=== PATIENT | female | born 1990 | race African-American/Black ===

== ENCOUNTER 2023-02-19 14:16 | Emergency (ER) | payer OTHER, SELFPAY ==
--- NOTE | ~2023-02-19 | XR_ITS ---
EXAMINATION: [id number] Exam Date/Time: 02/19/2023 15:19 STAINED GLASS GLAZIER HELPER HISTORY: coughing fit, pop in ribs Comparison: None. RESULT: Lines, tubes, and devices: None. Lungs and pleura: Slightly low volumes, with crowding. Streaky bibasilar atelectasis. Cardiomediastinal silhouette: Normal. Other: Mildly displaced left posterolateral ninth rib fracture. No acute upper abdominal finding. IMPRESSION: No acute cardiopulmonary process. Mildly displaced left posterolateral ninth rib fracture. Reviewed, dictated and finalized at location K. NED GLASS GLAZIER HELPER
[2023-02-19 14:21] VITALS: BP 131/75; PULSE 104; RESP 16; TEMP 36.3; O2SAT 100
[2023-02-19 14:33] VITALS: O2SAT 100
--- NOTE | 2023-02-19 14:38 | ED.GENADULT ---
HPI - General Adult General Chief complaint: Upper Respiratory Infection Stated complaint: pain with breathing, 31 weeks Time Seen by Provider: 02/19/23 14:26 Source: patient Mode of arrival: ambulatory Limitations: no limitations History of Present Illness HPI narrative: This is a 32-year-old female approximately 31 weeks who presents to the ED with chief complaint of left sided left flank pain began just prior to arrival. Patient reports she has had a cough and felt a pop today while coughing. Related Data Allergies Allergy/AdvReac Type Severity Reaction Status Date / Time No Known Allergies Allergy Verified 02/19/23 14:21 Exam Narrative: GENERAL: Well-appearing, well-nourished, and in no acute distress. HEAD: Normocephalic, atraumatic. EYES: PERRLA and EOMI. ENT: Nares clear, no rhinorrhea or epistaxis. Mucous membranes moist. Oropharynx without tonsillar hypertrophy exudate or other lesions. NECK: Supple. No adenopathy or masses. CHEST: No respiratory distress. Clear to auscultation. Breath sounds equal bilaterally. Point tenderness to the posterolateral left ribs. HEART: Regular rate and rhythm. No murmur heard. Normal peripheral pulses. ABDOMEN: Soft, nontender, nondistended, normal active bowel sounds. MSK: Normal range of motion. No edema. SKIN: Warm, dry, no rash. NEURO: Alert and oriented x3. No focal deficits. PSYCH: Normal mood and affect. Course Vital Signs Vital signs: Vital Signs Temperature 97.4 F L 02/19/23 14:21 Pulse Rate 104 H 02/19/23 14:21 Respiratory Rate 16 02/19/23 14:21 Blood Pressure 131/75 02/19/23 14:21 Pulse Oximetry 100 02/19/23 14:21 Temperature 97.4 F L 02/19/23 14:21 Pulse Rate 104 H 02/19/23 14:21 Respiratory Rate 16 02/19/23 14:21 Blood Pressure 131/75 02/19/23 14:21 Pulse Oximetry 100 02/19/23 14:33 Oxygen Delivery Room Air 02/19/23 14:33 Medical Decision Making MDM Narrative Medical decision making narrative: This is a 32-year-old female who is approximately 31 weeks coming in for left rib pain. She has had recent significant cough and felt a pop earlier. Vitals are normal. Exam reveals point tenderness to the posterior lateral ribs. On x-ray she has a mildly displaced 9th rib fracture at that location. Respiratory exam remains intact. She was given incentive spirometer. Tylenol given here with moderate relief. Instructed to follow-up with OB regarding cough medications. Pt will be discharged in stable condition. Return precautions given and supportive measures discussed. Pt is understanding and agreeable with plan for discharge and follow-up with PCP. Vital Signs Vital Signs: Vital Signs Temperature 97.4 F L 02/19/23 14:21 Pulse Rate 104 H 02/19/23 14:21 Respiratory Rate 16 02/19/23 14:21 Blood Pressure 131/75 02/19/23 14:21 Pulse Oximetry 100 02/19/23 14:21 Temperature 97.4 F L 02/19/23 14:21 Pulse Rate 104 H 02/19/23 14:21 Respiratory Rate 16 02/19/23 14:21 Blood Pressure 131/75 02/19/23 14:21 Pulse Oximetry 100 02/19/23 14:33 Oxygen Delivery Room Air 02/19/23 14:33 Discharge Plan Discharge Clinical Impression: Closed rib fracture Patient Disposition: Home, Self-Care Condition: Stable Instructions: Antibiotic Form, Rib Fracture (ED) Additional Instructions: Your exam and imaging today show evidence of 9th rib fracture. Please follow-up closely with your OB doctor. You need to ask them regarding cough medications in as the data is not clear on what is safe. Continue to take Tylenol every 4-6 hours as needed for pain. A maximum of 4000 mg of Tylenol in 1 day. If you have any new or worsening symptoms please return to the ER for further evaluation. Follow-up/Referrals: PHYSICIAN,LETTERER [Primary Care Provider] - Time of Disposition: 16:03
[2023-02-19] MEDS: ACETAMINOPHEN 500 MG TABLET 1000 MG PO (15:02)
== END 2023-02-19 16:17 | disposition home or self-care (01) ==
PROVIDERS: Emergency Provider Physician Assistant
DX: O9A.213 Injury, poisoning and certain other consequences of external causes complicating pregnancy, third trimester (principal); S22.32XA Fracture of one rib, left side, initial encounter for closed fracture; X50.9XXA Other and unspecified overexertion or strenuous movements or postures, initial encounter; Z3A.31 31 weeks gestation of pregnancy
CPT/HCPCS: 71101; 99283; A9270

== ENCOUNTER 2025-03-14 15:24 | Outpatient (RCR) | payer OTHER, SELFPAY ==
[2025-02-21 15:45] VITALS: BP 119/72; PULSE 98
[2025-02-28 16:33] VITALS: BP 133/75; PULSE 96
[2025-03-07 17:21] VITALS: BP 122/73; PULSE 98
--- NOTE | ~2025-03-14 | US_ITS ---
EXAM(S): US OB BPP without non-stress HISTORY: BPP, history of uterine rupture COMPARISON: None. FINDINGS: Number: Single. Heart rate: 142 bpm. presentation: cephalic. Amniotic fluid index: 9.6 cm. Placenta: Posterior. BPP: Breathing Movements: 0 Movements: 2 Tone: 2 AFV: 2 BPP: 6/8 IMPRESSION: Single live intrauterine gestation with BPP of 6/ 8, as described. Reviewed, dictated and finalized at location A. TMENT SPECIALIST
--- NOTE | ~2025-03-14 | US_ITS ---
EXAMINATION: US OB limited w BPP, 03/07/2025 17:10 OB GYN HISTORY: BPP Comparison: None Technique: Null-scale and color Doppler images were obtained. Findings: Single live intrauterine fetus in longitudinal lie and vertex presentation identified, heart rate 134 The placenta is located posteriorly and appears grossly unremarkable Amniotic fluid is subjectively normal, GEO 11.5 BPP 11/01 IMPRESSION: Single live intrauterine detailed above Reviewed, dictated and finalized at location P. GYN
--- NOTE | ~2025-03-14 | US_ITS ---
EXAMINATION: US OB BPP wo non-stress, 02/28/2025 16:00 BOOT LINER MAKER HISTORY: hx of Uterine rupture with past Comparison: None Technique: Null-scale and color Doppler images were obtained. Findings: Single live intrauterine in longitudinal lie and vertex presentation, heart rate 143 Placenta is located maternal right and posteriorly Amniotic fluid subjectively normal, DVP 6.55 BPP 8 IMPRESSION: Single live intrauterine detailed above Reviewed, dictated and finalized at location P. LINER MAKER
--- NOTE | ~2025-03-14 | US_ITS ---
US OB BPP wo non-stress INDICATION: History of uterine rupture . COMPARISON: None. TECHNIQUE: Transabdominal limited obstetric sonogram and biophysical profile were performed. TRANSABDOMINAL LIMITED OBSTETRIC SONOGRAM: There is a single intrauterine with a vertex longitudinal lie, posteriorly placenta, and GEO of 7.1 cm. heart motion at a rate of 133 bpm is documented. BPP: The biophysical profile score, assessing breathing movement, gross body movement, tone and qualitative amniotic fluid volume is 6/8. No breathing was observed. IMPRESSION: Single intrauterine in vertex presentation with heart tones measuring 633 bpm. Biophysical profile score 6/8. Reviewed, dictated and finalized at location S. L ARCHITECT IMPRESSION: Single intrauterine in vertex presentation with heart tones me asuring 633 bpm. Biophysical profile score 6/8.
[2025-03-14 15:58] VITALS: BP 129/77; PULSE 106
== END 2025-03-21 17:44 | disposition other institution (70) ==
LOC: ANHOBOP 15:24
PROVIDERS: Visit Provider Obstetrics & Gynecology
DX: O09.293 Supervision of pregnancy with other poor reproductive or obstetric history, third trimester (principal); Z3A.32 32 weeks gestation of pregnancy
CPT/HCPCS: 59025; 76815; 76819

== ENCOUNTER 2025-03-17 16:12 | Outpatient (CLI) | payer OTHER, SELFPAY ==
--- OUTSIDE RECORDS SUMMARY | 2025-03-17 11:15 | XMS_ITS | Encounter Summary ---
Author Organization [facility] Address [address] [place] [address] Care Team Providers Care Research And Development Chemist Name Role Phone Eliud Cox DO Primary Care Provider [phone] Reason for Referral * (Routine) - Open Specialty Diagnoses / Procedures Referred By Contac t Referred To Contact Diagnoses Previous section complicating (HCC) Hx of obstetrical complication Seventh (HCC) Obesity affecting , antepartum, unspecified obesity type (HCC) Encounter for follow-up ultrasound of anatomy (HCC) Encounter for ultrasound to assess growth (HCC) Previous child born with ventricular septal defect, currently , single or unspecified fetus (HCC) Procedures Sonogram - Complete Jamaal Oakes MD [address] [facility] [address] [place] [address] Phone: tel: fax: Referral ID Status Reason Start Date Expiration Date Visits Re quested Visits Authorized [id number] Open 12/18/2024 12/18/2025 4 4 RED MACHINE OPERATOR Reason for Visit * Reason Comments Ultrasound * (Routine) - Open Specialty Diagnoses / Procedures Referred By Contac t Referred To Contact Diagnoses Previous section complicating (HCC) Hx of obstetrical complication Seventh (HCC) Obesity affecting , antepartum, unspecified obesity type (HCC) Encounter for follow-up ultrasound of anatomy (HCC) Encounter for ultrasound to assess growth (HCC) Previous child born with ventricular septal defect, currently , single or unspecified fetus (HCC) Procedures Sonogram - Complete Jamaal Oakes MD [address] [facility] [address] [place] [address] Phone: tel: fax: Referral ID Status Reason Start Date Expiration Date Visits Re quested Visits Authorized [id number] Open 12/18/2024 12/18/2025 4 4 Encounter Details Date Type Department Care Team (Late st Contact Info) Description 03/17/2025 11:15 AM ARMORED MACHINE OPERATOR Hospital Encounter [facility] Maternal & Care [address] [place] [address] Sophia Castillo MD [address] [address] Social History Tobacco Use Types Packs/Day Years Used Date Smoking Tobacco: Never Smokeless Tobacco: Never Alcohol Use Standard Drinks/Week Comments No 0 (1 standard drink = 0.6 oz pur e alcohol) [place] Depression Scale Answer Date Recorded Last EPDS Total Score Not on file 01/06/2021 The thought of harming myself has occurred to me . Never 01/06/2021 Estimated Date of Delivery Comme nts Yes 04/12/2025 Based on last me nstrual period of 07/06/2024 Sex and Gender Information Value Date Recorded Sex Assigned at Not on file Legal Sex Female 4:47 AM ARMORED MACHINE OPERATOR Gender Identity Not on file Sexual Orientation Not on file documented as of this encounter Functional Status * Is person deaf or have serious hearing difficulty? Answer Date of Assessment Author No 11/25/2020 6:19 AM Ellie Rosenberg RN * Is person blind or have serious difficulty seeing? Answer Date of Assessment Author No 11/25/2020 6:19 AM Ellie Rosenberg RN * Does person have serious difficulty walking/climbing stairs? Answer Date of Assessment Author No 11/25/2020 6:19 AM Ellie Rosenberg RN * Does person have difficulty dressing/bathing? Answer Date of Assessment Author No 11/25/2020 6:19 AM Ellie Rosenberg RN * Does person have difficulty doing errands alone? Answer Date of Assessment Author No 11/25/2020 6:19 AM Ellie Rosenberg RN documented as of this encounter Mental Status * Does person have difficulty concentrating/remembering/making decisions? Answer Entry Date Author No 11/25/2020 6:19 AM Ellie Rosenberg RN documented in this encounter Plan of Treatment Not on file documented as of this encounter Procedures Procedure Name Priority Date/Time Associated Diagnosis Comments SONOGRAM - COMPLETE Routine 03/17/2025 11:49 AM ARMORED MACHINE OPERATOR Previous section complicating (HCC) Hx of obstetrical complication: Uterine rupture during ALPHONSO, 2021 Seventh (HCC) Obesity affecting , antepartum, unspecified obesity type (HCC) Encounter for follow-up ultrasound of anatomy ([facility]) Encounter for ultrasound to assess growth ([facility]) Previous child born with ventricular septal defect, currently , single or unspecified fetus ([facility]) documented in this encounter Results * Sonogram - Complete (03/17/2025 11:49 AM ARMORED MACHINE OPERATOR) Linked Results Indication ======== Obesity complicating , Class 3 - BMI of 40.0 or greater History of uterine rupture (avulsion) Family history of congenital heart defect History ====== OB History 7. Para 6 [id number] 1. live 2012. Gest. age 40 w + 2 d. Weight 4,120 g. Sex of child: male. Details: Vaginal delivery 2. live 2015. Gest. age 39 w + 1 d. Weight 3,680 g. Sex of child: female. Details: Vaginal delivery 3. live 2019. Gest. age 39 w + 0 d. Weight 3,590 g. Sex of child: male. Details: delivery 4. live 2020. Gest. age 39 w + 3 d. Weight 3,380 g. Sex of child: male. Details: delivery 5. live 2021. Gest. age 39 w + 0 d. Weight 2,278 g. Sex of child: male. Details: delivery; Uterine Abruption after attempt 6. live 2022. Gest. age 36 w + 0 d. Weight 2,551 g. Sex of child: male. Details: delivery Lab Tests Test Date Result Genetic screening Declined, Not performed Maternal Assessment Physical Exam Height 160 cm, 5 ft 3 in. Weight 112 kg, 248 lb. Initial weight 108 kg, 238 lb. BMI 43.93 kg/m . Initial BMI 42.16 kg/m . Weight gain 5 kg, 10 lb Method ====== Transabdominal ultrasound. View: limited secondary to challenging acoustic properties ========= Raphael . Number of fetuses: 1 Dating ====== Date Details Gest. age CAROLYN LMP 07/06/2024 36 w + 2 d 04/12/2025 Stated CAROLYN 36 w + 2 d 04/12/2025 U/S 03/17/2025 based upon AC, BPD, Femur, HC 36 w + 3 d 04/11/2025 Assigned dating based on the LMP, selected on 09/06/2024 36 w + 2 d 04/12/2025 General Evaluation Cardiac activity present. FHR 153 bpm. Presentation: cephalic Placenta: Placental site: posterior Amniotic fluid: Amount of AF: normal. GEO 11.4 cm. Q1 4.3 cm, Q2 2.0 cm, Q3 2.6 cm, Q4 2.6 cm Biometry BPD 87.4 mm 35w 2d 32% Hadlock HC 324.2 mm 36w 5d 30% Hadlock AC 338.0 mm 37w 5d 91% Hadlock Femur 70.3 mm 36w 0d 40% Hadlock Humerus 63.8 mm 37w 0d 85% Jono HC / AC 0.96 Weight Calculation: EFW 3,086 g 71% Hadlock EFW (lb,oz) 6 lb 13 oz EFW by Hadlock (HC-AC-FL) Growth Overview Exam date GA BPD (mm) HC (mm) AC (mm) FL (mm) HL (mm) EFW (g) 11/19/2024 19w 3d 44.4 50% 174.4 68% 143.3 53% 31.4 55% 30.8 79% 309 61% 12/18/2024 23w 4d 57.3 43% 221.3 57% 201.4 78% 44.4 72% 40.9 77% 713 85% 01/17/2025 27w 6d 68.5 28% 262.8 43% 246.2 73% 52.1 32% 50.2 85% 1219 58% 02/14/2025 31w 6d 80.3 53% 302.4 60% 300.8 95% 62.3 48% 64.4 >99% 2170 83% 03/17/2025 36w 2d 87.4 32% 324.2 30% 338 91% 70.3 40% 63.8 85% 3086 71% Anatomy The following structures appear normal: Abdomen Stomach. Kidneys. Bladder. Impression ========= 1) Raphael gestation, 36w2d 2) The accuracy of weight estimates is highly limited at / near term and at a higher BMI but today's AC measurement may be evidence of increased adiposity 3) The amniotic fluid volume is within normal limits 4) Imaging of the lower uterine segment myometrium was suboptimal (secondary to size and head position) Comment ======== ultrasound alone cannot detect all structural, genetic, or functional , placental, or maternal abnormalities Follow-up ======== Close maternal movement monitoring while awaiting admission for delivery (repeat CD is scheduled tomorrow) Coding ====== Diagnoses Z87.828: History of uterine rupture (avulsion) O99.213, E66.813: Obesity complicating , Class 3 - BMI of 40.0 or greater O34.219: Maternal care for unspecified type scar from previous delivery Z36.89: Encounter for other specified screening Procedures 79992: US Preg Uterus Follow Up [facility] PACS Anatomical Region Laterality Modality Other 03/17/2025 11:4 9 AM ARMORED MACHINE OPERATOR us Jamaal Oakes MD [facility] ORDERABLES Edited Result - Final documented in this encounter Visit Diagnoses Diagnosis Previous section complicating (HCC)- Primary Previous delivery, unspecified as to episode of care or not applicable Hx of obstetrical complication: Uterine rupture during ALPHONSO, 2021 Personal history of other genital system and obstetric disorders Obesity affecting , antepartum, unspecified obesity type (HCC) Encounter for ultrasound to assess growth (HCC) Previous child born with ventricular septal defect, currently , single or unspecified fetus (HCC) Supervision of high risk in third trimester (HCC) Unspecified high-risk Seventh (HCC) state, incidental Encounter for follow-up ultrasound of anatomy (HCC) documented in this encounter Care Teams Research And Development Chemist Relationship Specialty Start Date End Date Eliud Cox DO [address] [place] [address] PCP - General 06/05/09 documented as of this encounter
[2025-03-17 16:45] LABS: Hematocrit 32.1 % (37.0-47.0); Hemoglobin 10.7 g/dL (12.0-15.0); Mean Corpuscular HGB Conc 33.3 g/dl (32-36); Mean Corpuscular Hemoglobin 30.4 pg (26-34); Mean Corpuscular Volume 91.2 fl (80-100); Platelet Count Result 236 k/mm3 (150-375); Red Blood Count 3.52 M/mm3 (4.2-5.4); White Blood Count 9.8 K/mm3 (4.5-10.0)
--- OUTSIDE RECORDS SUMMARY | 2025-03-17 17:13 | XMS_ITS | Clinical Summary ---
Author Organization [facility] Address [address] [place] [address] Care Team Providers Care Swimming Coach Or Instructor Name Role Phone Eliud Cox Primary Care Provider [phone] Source Comments [facility],non-owned Affiliates and Associated Physician Practices is amultiple site organization consisting of ambulatory clinics and hospital sitesin [place], [place], [place] and [place]. This disclosure is being madepursuant to the Care Everywhere program and may not contain all information available regarding this patient. Last updated 17.[facility] Allergies No known active allergies Medications * Be aware that medications may not be up to date on this document. Alwaysverify current medications with the patient. [id number]-Yza-[id number] -FA ( VITAMINS PO) Active ferrous sulfate 325 (65 FE) MG tabletIndicatio ns:Iron Deficiency Anemia Take 1 (one) tablet by mouth once daily Reasons: Anemia From Inadequate Iron in the Body 90 tablet 1 Active Additional Information Patient not taking.Reported on 12/09/2020 escitalopram (LEXAPRO) 10 MG tabletIndicatio ns:Depression affecting in second trimester, antepartum (HCC) Take 1 (one) tablet by mouth once daily 90 tablet 4 1 Active Additional Information Patient taking differently: 20 mgOral DAILY,Indications: Major Depressive Disorder, Social Anxiety Disorder, Bipolar, Reason: Provider adjusted, Informant: Patient, Reported on 12/18/2024 oxyCODONE-aceta minophen (PERCOCET) 5-325 MG tablet Take 1 (one) tablet by mouth every 4 hours as needed 20 tablet 1 Active Additional Information Patient not taking.Reported on 01/06/2021 ibuprofen (MOTRIN) 600 MG tablet Take 1 (one) tablet by mouth every 6 hours 40 tablet 1 Active Additional Information Patient not taking.Reported on 01/06/2021 docusate sodium (COLACE) 100 MG capsule Take 1 (one) capsule by mouth 2 times daily 60 capsule 1 Active Additional Information Patient not taking.Reported on 12/09/2020 buPROPion XL 24hr (Wellbutrin-XL) 300 MG tabletIndicatio ns:Bipolar Take 1 (one) tablet by mouth every morning Reasons: Bipolar Active Active Problems Problem Noted Date Diagnosed Date Previous section complicating 11/19/2024 Hx of obstetrical complicati on: Uterine rupture during ALPHONSO, 202111/19/2024 Hx of section 05/19/2020 Obesity affecting , antepartum 05/19/19 21 Deliberate self-cutting 09/30/2019 Depression affecting 04/05/2019 ASCUS of cervix with negative high risk HPV 02/25 Overview (03/22/2019): Repeat pap 2019 BMI 40.0-44.9, adult 03/13/2019 Depression with anxiety 07/28/2017 Obesity 11/27/2013 ADHD (attention deficit hyperactivity disorder) 06/05/2009 Estimated Date of Delivery Comme nts Yes 04/12/2025 Based on last me nstrual period of 07/06/2024 Resolved Problems Problem Noted Date Diagnosed Date Resolved Date Vaginal bleeding 08/30/2019 11/19/2024 screening for feta l growth retardation using ultrasonics 05/28/2015 08/24/2017 Overview (12/25/2021): IMO 2021 Update Velamentous insertion of umbilical cord 03/06/2015 07/15/2015 Overview (04/09/2015): risk for abnormal heart rate patterns, growth restriction and increased risk for delivery Plan repeat growth scan at 32 weeks Encounter for nuchal translucency testing 01/12/2015 08/24/2017 Encounter for supervision of other normal 01/12/2015 08/24/2017 Overview (02/01/2015): Chlamydia infection affectin g , antepartum 12/02/2014 08/24/2017 UTI (urinary tract infection ) in , antepartum 12/02/2014 08/24/2017 Supervision of normal 10/31/2012 09/18/2014 ASCUS (atypical squamous ted ls of undetermined significance) on Pap smear 09/11/2012 08/24/2017 Vaginal bleeding during 11/19/2024 Encounters Date Type Department Care Team Description 03/17/2025 11:15 AM DIESEL ENGINEER Hospital Encounter [facility] [address] [place] [phone] Sophia Castillo MD 02/17/2025 Telephone [facility] [address] [place] [phone] Debbie Ramos RN Question (Called and spoke with Deysi with Primary OB provider. Patient needs to start weekly BPP + NST's due to history of uterine rupture. [facility] has no weekly appointments. Would primary OB office be able to accommodate this for patient?) 02/14/2025 1:37 PM DIESEL ENGINEER - 02/14/2025 11:59 PM DIESEL ENGINEER Hospital Encounter [facility] [address] [place] [phone] Jean Marie Galarza MD Discharge Disposition: Home or Self Care 01/17/2025 3:15 PM CDT - 01/17/2025 11:59 PM CDT Hospital Encounter [facility] [address] [place] [phone] David Beavers DO PIANO PLAYER Discharge Disposition: Home or Self Care 12/30/2024 12:30 PM CDT Hospital Encounter [address] [address] Kita Sanchez MD 12/30/2024 12:30 PM CDT Hospital Encounter [facility] [place] [address] [place] [phone] Svetlana Nickerson MD Lehmann, Gloria C, MD Discharge Disposition: Home or Self Care 12/30/2024 Results Follow-Up [facility] [address] [place] [phone] Svetlana Nickerson MD 12/27/2024 Telephone [facility] [place] [address] [place] [phone] Gabriela Gallegos Appointment 12/18/2024 12:52 PM CDT - 12/18/2024 11:59 PM CDT Hospital Encounter [facility] [address] [place] [phone] Svetlana Nickerson MD Discharge Disposition: Home or Self Care 12/18/2024 12:52 PM CDT - 12/18/2024 11:59 PM CDT Hospital Encounter [facility] [address] [place] [phone] Svetlana Nickerson MD Discharge Disposition: Home or Self Care from Last 3 Months Immunizations Immunization Administration Dates Next Due DT 07/17/2006 FLU VACCINE TRI IIV3 SPLIT P F IM (FLUVIRIN) 01/11/2013 HEP B VACCINE, ADULT 3 DOSE 03/11/2016 Human Papilloma Virus Vaccine 03/14/2007, 007,09/22/2006 INFLUENZA VACCINE, QUADR. (F LUZONE; FLULAVAL; FLUARIX; AFLURIA QUADRIVALENT; 6MO+), 0.5 ML (IIV4) 01/09/2015 TDAP (7yrs+) 09/08/2020, 0,05/01/2015,2012 Family History Medical History Relation Name Comments High Blood Pressure Maternal Grandfather High Blood Pressure Maternal Grandmother Blood Clots Mother Diabetes; unknown type Mother High Blood Pressure Mother Congenital Heart defect Other chil d Arthritis Neg Hx Bleeding Disorders Neg Hx Cancer Neg Hx Clotting Disorder Neg Hx Diabetes Neg Hx Genetic/Metabolic Disease Neg Hx Heart Disease Neg Hx Hypertension Neg Hx Kidney Disease Neg Hx Multiple Births Neg Hx Labor Neg Hx Sickle Cell Anemia Neg Hx Stroke Neg Hx Toxemia Neg Hx Twins Neg Hx Relation Name Status Comments Maternal Grandfather Maternal Grandmother Mother Other Social History Tobacco Use Types Packs/Day Years Used Date Smoking Tobacco: Never Smokeless Tobacco: Never Alcohol Use Standard Drinks/Week Comments No 0 (1 standard drink = 0.6 oz pur e alcohol) [place] Depression Scale Answer Date Recorded Last EPDS Total Score Not on file 01/06/2021 The thought of harming myself has occurred to me . Never 01/06/2021 Estimated Date of Delivery Comme nts Yes 04/12/2025 Based on last me nstrual period of 07/06/2024 Sex and Gender Information Value Date Recorded Sex Assigned at Not on file Legal Sex Female 4:47 AM DIESEL ENGINEER Gender Identity Not on file Sexual Orientation Not on file Last Filed Vital Signs Vital Sign Reading Time Taken Comments Blood Pressure 119/71 02/14/2025 3:01 PM DIESEL ENGINEER Pulse 106 02/14/2025 3:01 PM DIESEL ENGINEER Temperature 36.8 C (98.2 F) 11/27/2020 8:20 AM CDT Respiratory Rate 16 11/27/2020 4:45 AM CDT Oxygen Saturation 99% 11/27/2020 8:20 AM CDT Inhaled Oxygen Concentration - - Weight 111.6 kg (246 lb) 12/18/2024 1:39 PM CDT Height 160 cm (5' 3) 12/18/2024 1:39 PM CDT Body Mass Index 43.58 12/18/2024 1:39 PM CDT Plan of Treatment Health Maintenance Due Date Last Done Comments HEPATITIS B VACCINE (2 of 3 - 19+ 3-dose series) 04/08/2016 03/11/2016 PAP with HPV 03/13/2024 03/13/2019, 05/0 03/2014, 05/15/2013, Additional history exists DEPRESSION SCREENING 03/27/2024 COVID-19 VACCINE ( season) 2024 04/19/2021, 03/29/2021 INFLUENZA VACCINE (#1) 2024 2, 01/09/2015, 01/11/2013 OB-ONE HOUR GLUCOSE 01/04/2025 10/06/2020, 05/01/2015, 12/14/2012 OB-TDAP CURRENT 01/11/20252021, 09/08/2020, 08/26/2019, Additional history exists Respiratory Syncytial Virus (RSV) Vaccine Pt: or over 60 yrs (1 - Risk 1-dose series) 02/15/2025 OB-GROUP B STREP SCREEN 03/08/2025 11/04/19, 09/30/2019, 06/24/2015, Additional history exists DTAP/TDAP/TD VACCINES (6 - Td or Tdap) 09/08/2030 09/08/2020, 08/26/2019, 05/01/2015, Additional history exists ZOSTER VACCINE (1 of 2) 08/13/2041 HPV VACCINE Completed 03/14/2007, 10/26, 09/22/2006 HEPATITIS C SCREENING Completed 06/30/2017 HIV SCREENING Completed 11/25/2020, 02/24, 06/30/2017, Additional history exists HIB VACCINE Aged Out No longer eligi ble based on patient's age to complete this topic MENINGOCOCCAL (Group B) VACCINE SHARED DECISION-MAKING Aged Out No longer eligible based on patient's age to complete this topic MENINGOCOCCAL GROUPS A/C/Y/W VACCINE Aged Out No longer eligible based on patient's age to complete this topic PNEUMOCOCCAL VACCINE Aged Out No long er eligible based on patient's age to complete this topic Procedures Procedure Name Priority Date/Time Associated Diagnosis Comments SONOGRAM - COMPLETE Routine 03/17/2025 11:49 AM DIESEL ENGINEER Previous section complicating (HCC) Hx of obstetrical complication: Uterine rupture during ALPHONSO, 2021 Seventh (HCC) Obesity affecting , antepartum, unspecified obesity type (HCC) Encounter for follow-up ultrasound of anatomy ([facility]) Encounter for ultrasound to assess growth ([facility]) Previous child born with ventricular septal defect, currently , single or unspecified fetus (HCC) SONOGRAM - COMPLETE Routine 02/14/2025 1:51 PM DIESEL ENGINEER Previous section complicating (HCC) Hx of obstetrical complication: Uterine rupture during ALPHONSO, 2022 Seventh (HCC) Obesity affecting , antepartum, unspecified obesity type (HCC) Encounter for follow-up ultrasound of anatomy (HCC) Encounter for ultrasound to assess growth (HCC) Previous child born with ventricular septal defect, currently , single or unspecified fetus (HCC) SONOGRAM - COMPLETE Routine 01/17/2025 3:20 PM CDT Previous section complicating (HCC) Hx of obstetrical complication: Uterine rupture during ALPHONSO, 2021 Seventh (HCC) Obesity affecting , antepartum, unspecified obesity type (HCC) Encounter for follow-up ultrasound of anatomy (HCC) Encounter for ultrasound to assess growth (HCC) Previous child born with ventricular septal defect, currently , single or unspecified fetus (HCC) ECHO COMPLETE CG Routine 12/30/2024 1:08 PM CDT Previous child born with ventricular septal defect, currently , single or unspecified fetus (HCC) SONOGRAM - COMPLETE Routine 12/18/2024 12:54 PM CDT Seventh (HCC) Obesity affecting , antepartum, unspecified obesity type (HCC) HIV-1 HIV-2 ANTIBODY + HIV P24 AG PANEL Routine 11/25/2020 6:30 AM CDT STREP B DEE Routine 11/03/2020 5:11 PM CDT 36 weeks gestation of care, subsequent , third trimester GLUCOSE CHALLENGE Routine 10/06/2020 12: 24 PM CDT care, subsequent , third trimester 30 weeks gestation of HPV DNA PROBE Routine 03/13/2019 4:37 PM DIESEL ENGINEER Encounter for supervision of normal in multigravida in first trimester 7 weeks gestation of HEPATITIS SCREEN ACUTE Routine 06/30/2017 4:33 PM CDT HSV (herpes simplex virus) anogenital infection STD exposure from Last 3 Months or Most Recently Relevant to Health Maintenance Results * Sonogram - Complete (03/17/2025 11:49 AM DIESEL ENGINEER) Only the most recent of4 resultswithin the time period is included. Linked Results Indication ======== Obesity complicating , Class 3 - BMI of 40.0 or greater History of uterine rupture (avulsion) Family history of congenital heart defect History ====== OB History 7. Para 6 [id number] 1. live 2012. Gest. age 40 w [...] Z36.89: Encounter for other specified screening Procedures 62172: US Preg Uterus Follow Up [facility] [place] PACS Anatomical Region Laterality Modality Other 03/17/2025 11:4 9 AM DIESEL ENGINEER Jamaal Oakes MD [facility] ORDERABLES Edited Result - Final * ECHO COMPLETE CG (12/30/2024 1:08 PM CDT) MV E pk kyra 41.34 cm/s [facility] CV F UJI PACS MV A pk kyra 54.01 cm/s [facility] CV F UJI PACS Anatomical Region Laterality Modality Ultrasound 12/30/2024 12:4 9 PM CDT Narrative 12/30/2024 1:37 PM CDT Name: Mell Hansen Patient Exam Info Gender: Female Patient Status: O/P : 1990 Admit Date: 12/30/2024 Exam Date/Time: 12/30/2024 12:49 PM Site: [facility] Current Location: CARE EStaffOrdering Provider: [facility] Paramedic: Irish Galloway [facility] Study Info Procedure: ECHO COMPLETE CG Indications: O35.2XX0 - Previous child born with ventricular septal defect, currently , single or unspecified fetus (HCC) Maternal Gestational Status GA by EDC: 25 wks , 2 days : 7 Para: 6 Count: 1 EDC: 04/12/2025 Type: Raphael Procedure Details * Number of fetuses is 1. Age: 34 yrs Lie: Breech Summary * The echocardiogram was within normal limits. * Small atrial and ventricular septal defects and persistent ductus arteriosus cannot be excluded as findings. Anatomic Relationships Left sided cardiac apex (levocardia). There is normal visceral-cardiac situs, and normal segmental cardiac anatomical relationship. Systemic Veins There is normal systemic venous return. Pulmonary Veins The visualized pulmonary veins drain normally to the left atrium. Right Atrium The right atrial size is normal. Left Atrium The left atrial size is normal. Atrial Septum Patent foramen ovale with open foramen flap. Color flow is right to left. Right Ventricle The right ventricular cavity size is normal. The right ventricular wall thickness is normal. The right ventricular systolic function is normal. RV Outflow Tract The right ventricular outflow tract is normal. Left Ventricle The left ventricular cavity size is normal. The left ventricular wall thickness is normal. The left ventricular systolic function is normal. Ventricular Septum There is no ventricular septal defect with no shunting. LV Outflow Tract The left ventricular outflow tract is normal. Tricuspid Valve The tricuspid valve is structurally normal. The tricuspid inflow pattern is normal. Tricuspid velocity is within the normal range. There is no tricuspid regurgitation. Mitral Valve The mitral valve is structurally normal. The mitral inflow pattern is normal. Mitral velocity is within the normal range. There is no mitral regurgitation. Aorta aortic arch visualized and is without obstruction by 2D, color flow and Doppler. Pulmonary Arteries The main pulmonary artery is normal, with confluent branch pulmonary arteries. Ductus Arteriosus The antegrade flow velocity and pattern in the ductal arch is normal. A normal ductus arteriosus is appreciated. Doppler Flow in the ductus venosus is normal. The umbilical vein flow pattern is normal. The umbilical artery flow pattern is normal. Hydrops Assessment No pericardial effusion. No ascites present. No pleural effusion(s). Rhythm The rhythm is normal. There is 1:1 AV conduction. Pulmonary Valve The pulmonic valve is normal-sized. The transpulmonic velocity is within normal range. There is no pulmonic regurgitation. Aortic Valve The aortic valve is normal-sized. The transaortic velocity is within normal range. There is no aortic regurgitation. Doppler Measurements (Fetus A) Atrioventricular Valves Name Value Normal Z-Score Percentile Atrioventricular Valves Doppler TV E Peak Velocity 0.4 m/s TV A Peak Velocity 0.6 m/s MV E Peak Velocity 0.4 m/s MV A Peak Velocity 0.5 m/s (Fetus A) Semilunar Valves Name Value Normal Z-Score Percentile Semilunar Valves Doppler PV Peak Velocity. 0.5 m/s AV Peak Velocity () 0.8 m/s (Fetus A) Heart Rate Name Value Normal Z-Score Percentile Heart Rate HR 140 bpm Report Signatures Finalized by Kita Sanchez MD on 12/30/2024 01:37 PM Procedure Note Kita Sanchez MD - 12/30/2024 Name: Mell Laurenetz Patient Exam Info Gender: Female Patient Status: O/P : 1990 Admit Date: 12/30/2024 Exam Date/Time: 12/30/2024 12:49 PM Site: [facility] Current Location: CARE EStaffOrdering Provider: [facility] Paramedic: Irish Galloway [facility] Study Info Procedure: ECHO COMPLETE CG Indications: O35.2XX0 - Previous child born with ventricular septal defect,currently , single or unspecified fetus (HCC) Maternal Gestational Status GA by EDC: 25 wks , 2 days : 7 Para: 6 Count: 1 EDC: 04/12/2025 Type: Raphael Procedure Details * Number of fetuses is 1. Age: 34 yrs Lie: Breech Summary * The echocardiogram was within normal limits. * Small atrial and ventricular septal defects and persistent ductus arteriosus cannot be excluded as findings. Anatomic Relationships Left sided cardiac apex (levocardia). There is normal visceral-cardiac situs, and normal segmental cardiac anatomical relationship. Systemic Veins There is normal systemic venous return. Pulmonary Veins The visualized pulmonary veins drain normally to the left atrium. Right Atrium The right atrial size is normal. Left Atrium The left atrial size is normal. Atrial Septum Patent foramen ovale with open foramen flap. Color flow is right toleft. Right Ventricle The right ventricular cavity size is normal. The right ventricularwall thickness is normal. The right ventricular systolic function is normal. RV Outflow Tract The right ventricular outflow tract is normal. Left Ventricle The left ventricular cavity size is normal. The left ventricular wall thickness is normal. The left ventricular systolic function is normal. Ventricular Septum There is no ventricular septal defect with no shunting. LV Outflow Tract The left ventricular outflow tract is normal. Tricuspid Valve The tricuspid valve is structurally normal. The tricuspid inflow patternis normal. Tricuspid velocity is within the normal range. There is notricuspid regurgitation. Mitral Valve The mitral valve is structurally normal. The mitral inflow pattern is normal. Mitral velocity is within the normal range. There is no mitral regurgitation. Aorta aortic arch visualized and is without obstruction by 2D, colorflow and Doppler. Pulmonary Arteries The main pulmonary artery is normal, with confluent branch pulmonary arteries. Ductus Arteriosus The antegrade flow velocity and pattern in the ductal arch is normal.A normal ductus arteriosus is appreciated. Doppler Flow in the ductus venosus is normal. The umbilical vein flow patternis normal. The umbilical artery flow pattern is normal. Hydrops Assessment No pericardial effusion. No ascites present. No pleural effusion(s). Rhythm The rhythm is normal. There is 1:1 AV conduction. Pulmonary Valve The pulmonic valve is normal-sized. The transpulmonic velocity iswithin normal range. There is no pulmonic regurgitation. Aortic Valve The aortic valve is normal-sized. The transaortic velocity is withinnormal range. There is no aortic regurgitation. Doppler Measurements (Fetus A) Atrioventricular Valves Name Value Normal Z-ScorePercentile Atrioventricular Valves Doppler TV E Peak Velocity 0.4 m/s TV A Peak Velocity 0.6 m/s MV E Peak Velocity 0.4 m/s MV A Peak Velocity 0.5 m/s (Fetus A) Semilunar Valves Name Value Normal Z-ScorePercentile Semilunar Valves Doppler PV Peak Velocity. 0.5 m/s AV Peak Velocity () 0.8 m/s (Fetus A) Heart Rate Name Value Normal Z-ScorePercentile Heart Rate HR 140 bpm Report Signatures Finalized by Kita Sanchez MD on 12/30/2024 01:37 PM Svetlana Nickerson MD [facility] Final Result * HIV-1 HIV-2 ANTIBODY + HIV P24 AG PANEL (11/25/2020 6:30 AM CDT) HIV1/2 Ab + P24 Ag Non Reactive Non Reactive 11/25/2020 9:34 AM CDT [facility] Blood BLOOD SPECIMEN / Unknown Venipuncture / Unknown 11/25/2020 6:30 AM CDT 11/25/2020 6:47 AM CDT Narrative [facility] - 11/25/2020 9:34 AM CDT No Laboratory evidence of HIV infection. Lissette Mike DO LAB - CHEMISTRY ORDERABLES Final Result [facility] [address] [place] [address] * STREP B DEE (11/03/2020 5:11 PM CDT) Pathologist [facility] [place] Strep B DEE Negative Negative [facility] ACCOUNT BILL Comment: Centers for Disease Control and Prevention (CDC) and [place] [employer] of [employer]stetricians and Gynecologists (ACOG) guidelines for prevention of group B streptococcal (GBS) disease specify co-collection of a vaginal and rectal swab specimen to maximize sensitivity of GBS detection. Per the CDC and ACOG, swabbing both the lower vagina and rectum substantially increases the yield of detection compared with sampling the vagina alone. . Penicillin G, ampicillin, or cefazolin are indicated for intrapartum prophylaxis of GBS colonization. Reflex susceptibility testing should be performed prior to use of clindamycin only on GBS isolates from penicillin-allergic women who are considered a high risk for anaphylaxis. Treatment with vancomycin without additional testing is warranted if resistance to clindamycin is noted. Microbiology ENTIRE VAGINA / Unknown 11/03/2020 5:11 PM CDT 11/03/2020 Narrative Resulting Agency Comment Lab Testing performed at: [facility] [id number] [facility] [id number] Lissette Mike DO LAB - MICROBIOLOGY ORDERABLES Fi nal Result [facility] ACCOUNT BILL [address] [place] [address] * GLUCOSE CHALLENGE (10/06/2020 12:24 PM CDT) Pathologist [facility] [place] GTT 1Hr 114 <135 mg/dL [facility] Comment: Test Performed at: [facility] [address] [address] ELIZA CASTAÑEDA DO,MPH Blood BLOOD SPECIMEN / Unknown 10/06/2020 12:24 PM CDT 10/06/2020 12:28 PM CDT Lissette Mike DO LAB - CHEMISTRY ORDERABLES Final Result [facility] [address] [place] [address] * HPV DNA PROBE (03/13/2019 4:37 PM DIESEL ENGINEER) Human papillomavirus Aptima Negative Negative [facility] ACCOUNT BILL Comment: This nucleic acid amplification test detects fourteen high-risk HPV types (16,18,31,33,35,39,45,51,52,56,58,59,66,68) without differentiation. 03/13/2019 4:37 PM DIESEL ENGINEER 03/13/2019 Narrative [facility] ACCOUNT BILL - 03/22/2019 8:09 AM DIESEL ENGINEER No. of containers..01 ThinPrep Vial Resulting Agency Comment Lab Testing performed at: [facility] [address] [phone] [place] Lissette Mike DO LAB - SEROLOGY ORDERABLES Final Result Performing Organization Address City/[facility] Co de Phone Number [facility] ACCOUNT BILL [address] [place] [address] * HEPATITIS SCREEN ACUTE (06/30/2017 4:33 PM CDT) Hepatitis A Virus Antibody IgM Negative Negative [facility] ACCOUNT BILL Hepatitis B Virus Surface Antigen Negative Negative [facility] ACCOUNT BILL Hepatitis B Core Virus Antibody IgM Negative Negative [facility] ACCOUNT BILL Hepatitis C Antibody <0.1 0.0 - 0.9 s/co ratio [facility] ACCOUNT BILL Comment: Negative: < 0.8 Indeterminate: 0.8 - 0.9 Positive: > 0.9 . The CDC recommends that a positive HCV antibody result be followed up with a HCV Nucleic Acid Amplification test ([id number]). Blood BLOOD SPECIMEN / Unknown 06/30/2017 4:33 PM CDT 06/30/2017 Narrative Resulting Agency Comment [facility] [address] [facility] [phone] [place] Lissette Mike DO LAB - CHEMISTRY ORDERABLES Final Result Performing Organization Address City/State/[facility] Co de Phone Number [facility] ACCOUNT BILL [address] [place] [address] from Last 3 Months or Most Recently [place]vant [place] [address] [facility] Advance Directives * Full Code (Latest Code Status on File) Date Activated Date Inactivated Comments 11/25/2020 6:09 AM 11/27/2020 1:54 PM * Full Code Date Activated Date Inactivated Comments 10/22/2019 11:13 PM 10/25/2019 5:33 PM * Full Code Date Activated Date Inactivated Comments 08/30/2019 12:42 AM 08/30/2019 5:08 PM * Full Code Date Activated Date Inactivated Comments 08/29/2019 9:01 PM 08/29/2019 11:21 PM * Full Code Date Activated Date Inactivated Comments 08/22/2019 7:17 PM 08/22/2019 11:31 PM Care Teams Swimming Coach Or Instructor Relationship Specialty Start Date End Date Eliud Cox DO [address] [place] [address] PCP - General 06/05/09
--- OUTSIDE RECORDS SUMMARY | 2025-03-17 17:14 | XMS_ITS | Clinical Summary ---
Author Organization [facility] Medical Office Building Address [address] [place] [id number] Care Team Providers Care Progress Man Name Role Phone No, Physician Primary Care Provider [phone] Mani Newsome MD Unavailable [phone] Allergies No known active allergies Medications vit 28-[id number]-[id number]-d calvert 27mg iron- 800 mcg-250 mg capsule Take by mouth Active Mapap, acetaminophen, 500 mg capsule 2 Active acetaminophen (TYLENOL) 325 mg tablet Take 2 tablets (650 mg total) by mouth every 6 (six) hours as needed for fever 30 tablet 1 4 Active Additional Information Patient not taking.Reported on 03/31/2023 ibuprofen (ADVIL,MOTRIN) 600 mg tabletIndicatio ns:Cramps Take 1 tablet (600 mg total) by mouth every 6 (six) hours as needed for pain 30 tablet 1 4 Active Additional Information Patient not taking.Reported on 03/31/2023 oxyCODONE (ROXICODONE) 5 mg immediate release tabletIndicatio ns:Pain Take 1 tablet (5 mg total) by mouth every 4 (four) hours as needed for pain 20 tablet 4 Active Additional Information Patient not taking.Reported on 03/31/2023 polyethylene glycol (MIRALAX) 17 gram/dose bulk powderIndicatio ns:constipation Take 17 g by mouth daily 238 g 1 4 Active Additional Information Patient not taking.Reported on 03/31/2023 [employer] Ultra Test strip USE TO TEST BLOOD SUGAR FOUR TIMES DAILY 4 Active buPROPion XL (WELLBUTRIN XL) 300 mg 24 hr tablet TAKE 1 TABLET BY MOUTH EVERY DAY 90 tablet 3 4 Active escitalopram (LEXAPRO) 20 mg tablet TAKE 1 TABLET BY MOUTH EVERY DAY 90 tablet 5 Active Active Problems Problem Noted Date Diagnosed Date care following delivery 02/26 Overview (03/27/2023): 03/25/23, POD#1, rLTCS (BD): VSS - Anemia: QBL: Recent Labs Lab Units 03/24/23 0500 HEMOGLOBIN g/dL 9.6* HEMATOCRIT % 30.3* ; Currently asymptomatic. On Iron therapy. Tolerating PO. Voiding spontaneously. Ambulating. Pain: Controlled with PO pain medications incision clean, dry and intact Breast Feeding Contraception plan: Mirena IUD placed at time of C/S - will need IUD check US @ 6wk PP check. Baby doing well - DVT Prophylaxis: Weight based Lovenox; SCD's in place; Encourage early ambulation Disposition: Continue routine care 03/26/23, POD#2, rLTCS (BD): VSS - Anemia: QBL: Recent Labs Lab Units 03/24/23 0500 HEMOGLOBIN g/dL 9.6* HEMATOCRIT % 30.3* ; Currently asymptomatic. On Iron therapy. Tolerating PO. Voiding spontaneously. Ambulating. Pain: Controlled with PO pain medications incision clean, dry and intact Breast Feeding Contraception plan: Mirena IUD placed at time of C/S - will need IUD check US @ 6wk PP check. Baby doing well - DVT Prophylaxis: Weight based Lovenox; SCD's in place; Encourage early ambulation Disposition: Continue routine care 03/27/23, POD#3, rLTCS (BD): VSS - Anemia: QBL: Recent Labs Lab Units 03/24/23 0500 HEMOGLOBIN g/dL 9.6* HEMATOCRIT % 30.3* ; Currently asymptomatic. On Iron therapy. Tolerating PO. Voiding spontaneously. Ambulating. Pain: Controlled with PO pain medications incision clean, dry and intact Breast Feeding Contraception plan: Mirena IUD placed at time of C/S - will need IUD check US @ 6wk PP check. Baby doing well; D/C planned from NICU today - DVT Prophylaxis: Weight based Lovenox; SCD's in place; Encourage early ambulation Disposition: Continue routine care; anticipate D/C home today Rupture of uterus during labor, with delivery History of gestational hypertension 09/13/2022 Overview (09/20/2022): - History of gHTN, no medications needed previously Plan: - Complete baseline labs (ordered with Dr. East) - Begin daily ASA at 12 weeks - discussed Assessment & Plan (09/20/2022 12:54 PM CDT): We discussed the risk of recurrence of HDP in this and recommended she start ASA at 12w as this has been shown to decrease but not eliminate recurrence risk. Supervision of high risk in [facility] 09/13/2022 Overview (12/28/2022): [x] Co-management [x] Blue Team - Pt will be seeing primary only as of 12/28 per Kevin, no longer seeing MFM unless something changes Referring Provider: Laurence East [phone] [] or Medicare Insurance [x] Dating Criteria: US 09/09/22 with CAROLYN 04/21/23 [x] Labs: Rh [A+], Ab [negative], Rubella [immune], HIV [non-reactive], HepBSAg [non-reactive], RPR [non-reactive], Hep C [non-reactive], Varicella [not done], GC/CT [negative/negative] [x] Genetic Screening: low risk [x] CBC/Hgb 10.9/34.6/plt 321 [x] Early 1hr GTT: 109 [x] UCx: 09/09/22: negative [x] Pap: 05/30/22: NILM; HPV negative [x] LD ASA (if indicated) starting at 12 weeks: Indicated [] EPDS [ ]; PNBHS referral (if indicated) 2nd Tri Labs: [x] Anatomy ultrasound: complete and wnl [] CBC/Ferritin/1hr gtt at 24-28wks: [] Flu Shot (Nov-Feb): [] Tdap (27-36wks): 3rd Tri Labs: [] CBC/HIV/RPR/T&S: [] GBS: [] testing: Counseling [] MOD: [] Place of delivery: plan for delivery with primary OB [] Last clinic visit SVE: [] IOL start agent: [] Epidural: [] Consents signed: [] MOC: [] Method of feeding: [] Instructional Technology Coach: [] PP Depression Discussed: Discussed with primary OB and plan for full care with their team. MFM happy to help if needed. Anxiety and depression 09/13/2022 Overview (12/26/2022): Previously counseled Currently on Lexapro and Bupropion Has a therapist that she is established with but does not have appt scheduled- encouraged she call and schedule Plan: Continue close monitoring of symptoms Assessment & Plan (12/26/2022 2:15 PM CDT): Support provided today. Encouraged she reestablish with her therapist. She reports good family support. Other specified diseases and conditions complicating 09/13/2022 Supervision of other normal , antepartu m 09/09/2022 Overview (03/27/2023): Surveillance of [place] T US Labs: A (+), Ab neg, Rubella Imm, HIV neg, HepBSAg neg, Hep C NR, RPR NR Genetics: NIPT - low risk Early GTT - passed Anatomy: with MFM, complete, AGA Placenta: posterior, no previa GCT: passed home ambulatory monitoring 3rd trim CBC/HIV/RPR Tdap: declines GBS: negative COVID Vaccine: completed initial series Flu vaccine: declines Social Barriers: difficulty with childcare and some scheduling Delivery Planning: repeat on 03/24 at 7:30am with Dr Newsome Mode of Feeding: breast Mode of contraception: Planning Mirena IUD insertion at time of C/S - pt counseled on risks/benefits of immediate PP IUD insertion Depression, Anxiety: On Wellbutrin, lexapro. Mood stable HSV: last outbreak was years ago, ppx - started 03/15 given need for early delivery H/o gHTN: Baseline labs wnl. ASA sporadically - reinforced (12/09) Morbid obesity: BMI 40. Plan for serial growth - last 02/21 - 33%ile, normal fluid. Weekly testing at 34 weeks - last - 03/15 - reactive. 3rd trim anesthesia consult - placed. Anemia: Hgb 10.9 > on sporadic iron, H/H 9.9/30.9, offered IV iron but declined. Will work on better PO intake/supplementation. H/o CS x 3, history of uterine rupture Last attempted TOLAC, resulted in emergent CS due to uterine rupture with vertical extension. Baby to NICU at [facility] Will need CS at 36-37 weeks gestation given vertical extension - scheduled March 24 S/p MFM referral, normal placentation Completed BMZ course in anticipation of 36wk delivery Uterine rupture during labor 09/09/2022 Overview (12/26/2022): - Last attempted TOLAC, resulted in emergent CS due to uterine rupture with vertical extension (records in [facility]). Baby to NICU at [facility]. - Will need scheduled CS at 36-37 weeks gestation given vertical extension - we discussed that the ultimate timing can be determined later in ; however, this is a short interval with delivery of the with uterine rupture 6 months prior to conception of this . We discussed that short interval can be associated with increased risk of uterine rupture so delivery earlier in that window may be reasonable [x] Place of delivery- Plan discussed with primary OB and plan for delivery with them, will reach out to determine if growth US will be done here or with them Assessment & Plan (12/26/2022 2:14 PM CDT): Strict hospital precautions reviewed for PTL HSV (herpes simplex virus) anogenital infection 01/17/2022 Overview (09/20/2022): Will need suppression later in Obesity affecting , antepartum 06/23/19 22 Overview (09/20/2022): - Early A1c 5.1%, 1h GTT ordered - Daily ASA at 12 weeks - discussed - Specialized anatomic survey at 20 weeks - Recommend weekly growth US at 24 weeks - Recommend weekly testing at 34 weeks Assessment & Plan (09/20/2022 12:51 PM CDT): We discussed the risks associated with obesity, including preeclampsia, gestational diabetes, delivery, growth abnormalities (IUGR and macrosomia) and stillbirth. History of 06/22/2021 Overview (03/27/2023): 03/24/23 @ 0715 (BD): - Planned Procedure: repeat C/S; Mirena IUD Insertion - Reviewed indications, risks, benefits, and alternatives with patient. Pt voiced understanding and wished to proceed with surgery/delivery as discussed. Written informed consents were obtained and scanned into EHR record. - Reviewed all current medications - meds have been held and continued appropriately pre-operatively - Anti-coagulation: Current anti-coagulation none. Will plan for SCD's intra-op and postop, early ambulation in the period, and lovenox. - Diet: NPO 8hrs prior to hospital arrival time, appropriate clear liquid per ERAS Protocol allowed. - Fluids: IV placement, LR bolus prior to spinal, followed by maintenance - Pain Control: Anticipate Spinal, Anesthesia consulted pre-op. - Pre-op Labs: CBC, T&S - Pre-op Antibiotics: 2g ancef - FWB: Tracing - NST to be obtained pre-op Resolved Problems Problem Noted Date Diagnosed Date Resolved Date Gestational hypertension 01/18/2022 Overview (01/19/2022): 01/18/2022 POD#1 ([place]): Several MR blood pressures after admission Currently normotensive Labs stable Patient is asymptomatic No indication for BP meds at this time care following delivery 01/18/2022 03/24/2023 Overview (01/19/2022): 01/19/2022, POD#1 ([place]): S/p emergent rCS for NRFS and uterine rupture EBL 600, Hgb 9.7 > 8.7. Will discharge home with PO iron supplementation. VSS Ambulating to the bathroom, voiding spontaneously and tolerating. Passing gas and had a BM. A (+), rubella immune Emotionally struggling with events of yesterday, but is reassured by reports that baby is doing better MOF: formula (at other hospital) MOC: to be discussed Continue post-op care, patient is COVID (+) as of 01/14, will speak to the NICU about when she can see baby, but warned her that it might be between 7-10 days from her (+) test. 01/19/2022, POD#2 (BD): S/p emergent rCS for NRFS and uterine rupture EBL 600, Hgb 9.7 > 8.7. Will discharge home with PO iron supplementation. VSS Ambulating to the bathroom, voiding spontaneously and tolerating. Passing gas and had a BM. A (+), rubella immune MOF: formula (at other hospital) MOC: to be discussed Continue post-op care, patient is COVID (+) as of 01/14, will speak to the NICU about when she can see baby, but warned her that it might be between 7-10 days from her (+) test. Pt is anxious for discharge - pt stable, plan for D/C home today COVID-19 virus infection 01/18/2022 Overview (01/18/2022): (+) 01/14, asymptomatic Encounter for induction of labor 01/17/2022 09/09/2022 Overview (01/19/2022): 01/17/22, 1030 (KR) SVE on admission 3/-3 Patient desired to TOLAC Pitocin initiated When pitocin at 4 mu/min, SVE was /-2 AROM performed, CF, IUPC placed, no complication Will titrate pitocin to adequacy Immunizations Immunization Administration Dates Next Due HPV, Unspecified 03/14/2007,11/22/2006, 7 Surgical History Surgery Date Site/Laterality Comments COLPOSCOPY SECTION x 2 WISDOM TOOTH EXTRACTION Medical History Medical History Date Comments Abnormal Pap smear of cervix Depression Anxiety Bipolar 1 disorder (HCC) Gestational hypertension 01/18/2022 022 POD#1 ([facility]): Several MR blood pressures after admission Currently normotensive Labs stable Patient is asymptomatic No indication for BP meds at this time Family History Medical History Relation Name Comments Unknown Family History Father Prostate cancer Maternal Grandfather No Known Problems Maternal Grandmother Diabetes Mother HIV Mother Hyperlipidemia Mother Hypertension Mother Pancreatic cancer Other M great uncle Breast cancer Neg Hx Colon cancer Neg Hx Ovarian cancer Neg Hx Uterine cancer Neg Hx Relation Name Status Comments Father Alive Maternal Grandfather Alive Maternal Grandmother Alive Mother Alive Other M great uncle Social History Tobacco Use Types Packs/Day Years Used Date Smoking Tobacco: Never Smokeless Tobacco: Never [place] Depression Scale Answer Date Recorded [place] Depression Scale Total 7 05/05/2023 The thought of harming myself has occurred to me . Never 05/05/2023 Personal Safety Answer Date Recorded Have you ever been in or are you currently in a harmful physical or emotional relationship or is someone making you feel afraid or unsafe? Denies 03/24/2023 Comments No Sex and Gender Information Value Date Recorded Sex Assigned at Not on file Legal Sex Female 10:36 PM [employer] Gender Identity Female 06/02/2021 8:22 PM [employer] Sexual Orientation Not on file Obstetrics History Para Term AB IAB SAB Ectopic Multiple Livin g Live Births 6 6 5 1 0 6 6 Date Outcome GA Total Labor Labor/2nd/3rd Weight Sex Type Anes PTL Altagracia A1 A5 Name Clin 2012 Term 40w 2d 4.12 kg (9 lb 1.3 oz) M Vag-S pont Epidur al Livin g 8 9 WILLIA M JN Gao MD Complications:None Delivery Location:[facility] 2015 Term 39w 1d 0h 04m 0h 04m 3.68 kg (8 lb 1.8 oz) F Vag-S pont Epidur al Livin g 8 9 GWENDO AMARILYS Complications:None Delivery Location:[facility] 2019 Term 39w 0d 0h 02m 0h 02m 3.59 kg (7 lb 14.6 oz) M CS-LT ranv Combin ed Spinal /Epidu ral,Sp inal,E pidura l N Livin g 9 9 TYRONE, BABY BOY FERRAR Lali doan MD Complications: Intolera nce, heart rate deceleration, delivered, current hospitalization Delivery Location:[facility] ([facility]) 2020 Term 39w 3d 0h 01m 0h 01m 3.38 kg (7 lb 7.2 oz) M CS-LT ranv Spinal N Livin g 8 9 TYRONE, BABY MARCOS Vega Cee DO Complications:None Delivery Location:[facility] ([facility]) 2021 Term 39w 3d 0h 01m 0h 01m 3.575 kg (7 lb 14.1 oz) M CS-LT ranv Epidur al,Gen eral N Livin g 0 5 TYRONE, BOYFER DHRUV doan, Clive Horton MD Complications:Uterine Ruptur e Delivery Location:[facility] ([facility]) 2022 36w 0d 0h 01m 0h 01m 2.54 kg (5 lb 9.6 oz) M C-Sec tion Spinal Livin g 6 6 Brian L Fontana -Tyrone Alicia Newsome am, MD Delivery Location:[facility] ([facility] L [facility] D PROCEDURE) Last Filed Vital Signs Vital Sign Reading Time Taken Comments Blood Pressure 122/76 11/29/2023 3:28 PM CDT Pulse 101 03/27/2023 8:00 AM [employer] Temperature 37.3 C (99.2 F) 03/27/2023 8:00 AM [employer] Respiratory Rate 20 03/27/2023 5:53 AM [employer] Oxygen Saturation 98% 03/27/2023 5:53 AM [employer]TRY [employer] Inhaled Oxygen Concentration - - Weight 105.7 kg (233 lb) 11/29/2023 3:28 PM CDT Height 160 cm (5' 3) 11/29/2023 3:28 PM CDT Body Mass Index 41.27 11/29/2023 3:28 PM CDT Plan of Treatment Health Maintenance Due Date Last Done Comments Varicella Vaccines (1 of 2 - 13+ 2-dose series) 08/13/2004 Cervical Cancer Screening 05/31/2023 05/30/2022 Regular Well Visit/Exam 18-64 05/31/2023 05/30/2022, 06/09/2021 Depression Screening 05/05/2024 05/05/2023 Covid-19 Vaccine ( season) 2024 04/19/2021, 03/29/2021 Influenza Vaccine (#1) 2024 01/09/2015, 2012 DTaP/Tdap/Td Vaccine (6 - Td or Tdap) 09/08/2030 09/08/2020, 08/26/2019, 05/01/2015, Additional history exists HPV Vaccines Completed 03/14/2007, 10/26, 09/22/2006 Hepatitis B Screening Completed 03/11/2016 Hepatitis C Screening Completed 09/09/2022, 022 Pneumococcal vaccine <65 Aged Out No longer eligible based on patient's age to complete this topic Procedures Procedure Name Priority Date/Time Associated Diagnosis Comments HEPATITIS C ANTIBODY Routine 09/09/2022 12:32 PM CDT First trimester PAP AND HIGH RISK HPV, REFLEX TO GENOTYPING Routine 05/30/2022 10:58 AM [employer]TRY [employer] Well woman exam from Last 3 Months or Most Recently Relevant to Health Maintenance Results * Hepatitis C antibody (09/09/2022 12:32 PM CDT) Hep C Ab Nonreactive Nonreactive KELLY VIDALES Comment: Interpretive Data Nonreactive: Antibodies to HCV not detected. Does NOT exclude the possibility of recent exposure to HCV. Equivocal: Equivocal for HCV antibodies. Supplemental molecular testing will be automatically performed to determine infection status in accordance with current CDC screening recommendations. Reactive: Positive for HCV antibodies. This may represent current or past HCV infection. Supplemental molecular testing will be automatically performed to determine current infection status in accordance with current CDC screening recommendations. Interpretive data was last revised on 2019. Blood 09/09/2022 12:3 2 PM CDT 09/09/2022 2:32 PM CDT us Laurence East MD LAB MICROBIOLOGY - GENERAL ORDERABLES Final Result KELLY VIDALES [address] [facility] [place] [address] * Pap and High Risk HPV, reflex to Genotyping (05/30/2022 10:58 AM [employer]) Thin prep (Pap test) 05/30/2022 10:58 AM [employer] 05/31/2022 10:58 AM [employer] Narrative PATHOLOGY [facility] - 06/03/2022 11:52 AM [employer] [facility] Department of Pathology [address] [place] [address] Final Report with Addendum Note to Patients: This report may contain a detailed description of human tissue sent by a health care provider to the laboratory for pathologic evaluation. The content of this report is essential for diagnosis and may provide important critical findings. This information may be unfamiliar to patients to review without a medical professional present. It is advised that the patient review this report in the presence of a health care provider who can answer questions and explain the details. Patient Name: MELL HANSEN Address: [address] [place] [address] Gender: F : 1990 (Age: 31) Service: Location: [facility] : [id number] [facility] #: [id number] Patient Type: [facility] SPECIMEN Taken: 05/30/2022 Received: 05/31/2022 Accessioned:: 06/01/2022 Reported: 06/03/2022 Physician(s): Cydney Colbert M.D. [facility] Diagnosis: Source of Specimen: SCREENING THIN PREP IMAGED PAP w/ HPV: Specimen Adequacy: - Satisfactory for evaluation; endocervical/transformation zone component present General Categorization: - Negative for intraepithelial lesion or malignancy Interpretation: - Reactive/reparative cell changes SHILO Griffith(ASCP)Aron Pablo M.D. Report Electronically Reviewed and Signed Out By Aron Pablo M.D. 06/03/2022 11:52:24Addenda: HPV Test Interpretation NEGATIVE for types 16, 18, 31, 33, 35, 39, 45, 51, 52, 56, 58, 59, 66 and 68. Test performed utilizing Gen-Probe Aptima assay. SIHLO Banks(ASCP)Report Electronically Reviewed and Signed Out By SHILO Banks(ASCP) 06/02/2022 10:39:54 Specimen(s) Received: A: SCREENING THIN PREP IMAGED PAP w/ HPV Clinical History: Last Menstrual Period: 05/11/2022 The Pap test is a screening test used to aid in the detection of cervical cancer and its precursors. It should not be the sole means by which malignant and premalignant lesions are diagnosed. Both false negative and false positive results may occur. It also has poor sensitivity for the detection of endometrial lesions and should not be used to evaluate suspected endometrial abnormalities. For these reasons it is most important to obtain Pap tests at regular intervals. The performance characteristics of some immunohistochemical stains, fluorescence in-situ hybridization tests and immunophenotyping by flow cytometry cited in this report (if any) were determined by the Surgical Pathology Department at [facility] as part of an ongoing quality analyst program and in compliance with federally mandated regulations drawn from the Clinical Laboratory Improvement Act of 1988 (CLIA '88). Some of these tests rely on the use of analyte specific reagents and are subject to specific labeling requirements by the US Food and Drug Administration. Such diagnostic tests may only be performed in a facility that is certified by the Department of Health and Human Services as a high complexity laboratory under CLIA '88. The FDA has determined that such clearance or approval is not necessary. This test is used for clinical purposes. It should not be regarded as investigational or for research. Nevertheless, federal rules concerning the medical use of analyte specific reagents require that the following disclaimer be attached to the report: This test was developed and its performance characteristics determined by the Surgical Pathology Department [facility]. It has not been cleared or approved by the U. S. Food and Drug Administration. Cydney Colbert MD LAB CYTOLOGY ORDERABLES Fin al Result [facility] from Last 3 Months or Most Recently Relevant to Health Maintenance Insurance [employer]NA [facility] [employer]NA [facility] [employer] [facility] Advance Directives For more information, please contact: [phone] * Full Code (Latest Code Status on File) Date Activated Date Inactivated Comments 03/24/2023 10:36 AM 03/27/2023 7:30 PM * Full Code Date Activated Date Inactivated Comments 03/24/2023 4:56 AM 03/24/2023 10:36 AM Full CPR in case of cardiopulmonary arrest * Full Code Date Activated Date Inactivated Comments 03/24/2023 4:56 AM 03/24/2023 4:56 AM Full CPR i n case of cardiopulmonary arrest * Full Code Date Activated Date Inactivated Comments 01/17/2022 3:19 PM 01/19/2022 9:24 PM * Full Code Date Activated Date Inactivated Comments 01/17/2022 6:54 AM 01/17/2022 3:19 PM Full CPR i n case of cardiopulmonary arrest Care Teams Progress Man Relationship Specialty Start Date End Date No, Physician PCP - General 05/25/21 Mani Newsome MD Consulting Physician Obstetrics and Gynecology 03/27/23
[2025-03-17 17:35] LABS: Syphilis IgG/IgM Antibody Non-Reactive (Nonreactive)
== END 2025-03-17 16:13 | disposition home or self-care (01) ==
LOC: ANHLAB 16:14
PROVIDERS: Visit Provider Obstetrics & Gynecology
DX: Z34.93 Encounter for supervision of normal pregnancy, unspecified, third trimester (principal); Z3A.00 Weeks of gestation of pregnancy not specified
CPT/HCPCS: 36415; 85027; 86593; 86850; 86900; 86901

== ENCOUNTER 2025-03-18 05:22 | Inpatient (IN) | payer OTHER, SELFPAY ==
--- OUTSIDE RECORDS SUMMARY | 2025-03-17 11:15 | XMS_ITS | Encounter Summary ---
Author Organization [facility] Address [address] [place] [address] Care Team Providers Care Sonar Subsystem Equipment Operator Name Role Phone Eliud Cox DO Primary Care Provider [phone] Reason for Referral * (Routine) - Open [...] Sonogram - Complete Jamaal Oakes MD [address] [facility] [address] [place] [address] Phone: tel: fax: Referral ID Status Reason Start Date Expiration Date Visits Re quested Visits Authorized [id number] Open 12/18/2024 12/18/2025 4 4 ATION MANAGERS Reason for Visit * Reason Comments Ultrasound [...] Sonogram - Complete Jamaal Oakes MD [address] [facility] [address] [place] [address] Phone: tel: fax: Referral ID Status Reason Start Date Expiration Date Visits Re quested Visits Authorized [id number] Open 12/18/2024 12/18/2025 4 4 Encounter Details Date Type Department Care Team (Latest Contact Info) Description 03/17/2025 11:15 AM EDUCATION MANAGERS - 03/17/2025 11:59 PM EDUCATION MANAGERS Hospital Encounter [facility] [address] [id number] Sophia Castillo MD [address] [address] Discharge Disposition: Home or Self Care Social History Tobacco Use Types Packs/Day Years Used Date Smoking Tobacco: Never Smokeless Tobacco: Never Alcohol Use Standard Drinks/Week Comments No 0 (1 standard drink = 0.6 oz pur e alcohol) [place] Depression Scale Answer Date Recorded Last EPDS Total Score Not on file 01/06/2021 The thought of harming myself has occurred to me . Never 01/06/2021 Estimated Date of Delivery Comme nts Yes 04/12/2025 Based on last me nstrual period of 07/06/2024 Sex and Gender Information Value Date Recorded Sex Assigned at Not on file Legal Sex Female 4:47 AM EDUCATION MANAGERS Gender Identity Not on file Sexual Orientation [...] Ellie Rosenberg RN documented in this encounter Medications at Time of Discharge buPROPion XL 24hr (Wellbutrin-XL) 300 MG tabletIndication s:Bipolar Take 1 (one) tablet by mouth every morning Reasons: Bipolar docusate sodium (COLACE) 100 MG capsule Take 1 (one) capsule by mouth 2 times daily 60 capsule 11/27/2020 escitalopram (LEXAPRO) 10 MG tabletIndication s:Depression affecting in second trimester, antepartum ([facility]) Take 1 (one) tablet by mouth once daily 90 tablet 4 11/10/2020 ferrous sulfate 325 (65 FE) MG tabletIndication s:Iron Deficiency Anemia Take 1 (one) tablet by mouth once daily Reasons: Anemia From Inadequate Iron in the Body 90 tablet 10/20/2020 ibuprofen (MOTRIN) 600 MG tablet Take 1 (one) tablet by mouth every 6 hours 40 tablet 11/27/2020 oxyCODONE-acetam inophen (PERCOCET) 5-325 MG tablet Take 1 (one) tablet by mouth every 4 hours as needed 20 tablet 11/27/2020 Bcgexqgn-Agl-Rd- FA ( VITAMINS PO) documented as of this encounter Plan of Treatment Not on file documented as of this encounter Procedures Procedure Name Priority Date/Time Associated Diagnosis Comments SONOGRAM - COMPLETE Routine 03/17/2025 11:49 AM EDUCATION MANAGERS Previous section complicating ([facility]) Hx of obstetrical complication: Uterine rupture during ALPHONSO, 2021 Seventh (HCC) Obesity affecting , antepartum, unspecified obesity type ([facility]) Encounter for follow-up ultrasound of anatomy ([facility]) Encounter for ultrasound to assess growth ([facility]) Previous child born with ventricular septal defect, currently , single or unspecified fetus ([facility]) documented in this encounter Results * Sonogram - Complete (03/17/2025 11:49 AM EDUCATION MANAGERS) Linked Results Indication ======== Obesity complicating , Class 3 - BMI of 40.0 or greater History of uterine rupture (avulsion) Family history of congenital heart defect History ====== OB History 7. Para 6 [id number] 1. live 2012. Gest. age 40 w [...] Z36.89: Encounter for other specified screening Procedures [id number]: US Preg Uterus Follow Up [facility] [employer] PACS Anatomical Region Laterality Modality Other 03/17/2025 11:4 9 AM EDUCATION MANAGERS Jamaal Oakes MD [facility] ORDERABLES Edited Result - Final documented [...] (HCC) documented in this encounter Care Teams Sonar Subsystem Equipment Operator Relationship Specialty Start Date End Date Eliud Cox DO [address] [place] [address] PCP - General 06/05/09 documented as of this encounter
[2025-03-18] VITALS (42 sets, daily range): BP systolic 100–134; BP diastolic 58–88; PULSE 65–108; RESP 14–19; TEMP 36.5–36.8; O2SAT 96–100; BMI 44.1
--- OUTSIDE RECORDS SUMMARY | 2025-03-18 02:52 | XMS_ITS | Clinical Summary ---
Author Organization [facility] Address [address] [place] [address] Care Team Providers Care Advertisement Distributor Name Role Phone Eliud Cox Primary Care Provider [phone] Source Comments [facility],non-owned Affiliates and Associated Physician Practices is amultiple site organization consisting of ambulatory clinics and hospital sitesin [place], [place], [place]. This disclosure is being madepursuant to the Care Everywhere program and may not contain all information available regarding this patient. Last updated 17.[facility] Allergies No known active allergies Medications * Be aware that medications may not be up to date on this document. Alwaysverify current medications with the patient. Oolbdoah-Qxm-Xc -FA ( VITAMINS PO) Active ferrous sulfate [...] Department Care Team Description 03/17/2025 11:15 AM MANOMETER TECHNICIAN - 03/17/2025 11:59 PM MANOMETER TECHNICIAN Hospital Encounter [facility] [address] [place] [phone] Sophia Castillo MD Discharge Disposition: Home or Self Care 02/17/2025 Telephone [facility] [address] [place] [phone] Debbie Ramos RN Question (Called and spoke with Deysi with Primary OB provider. Patient needs to start weekly BPP + NST's due to history of uterine rupture. [facility] has no weekly appointments. Would primary OB office be able to accommodate this for patient?) 02/14/2025 1:37 PM MANOMETER TECHNICIAN - 02/14/2025 11:59 PM MANOMETER TECHNICIAN Hospital Encounter [facility] [address] [place] [phone] Jean Marie Galarza MD Discharge Disposition: Home or Self Care 01/17/2025 3:15 PM CDT - 01/17/2025 11:59 PM CDT Hospital Encounter [facility] [address] [place] [phone] David Beavers DO OIL PROSPECTING OBSERVER Discharge Disposition: Home or Self Care 12/30/2024 12:30 PM CDT Hospital Encounter [facility] [address] [address] Kita Sanchez MD 12/30/2024 12:30 PM CDT Hospital Encounter [facility] [place] [address] [place] [phone] Svetlana Nickerson MD Lehmann, Gloria C, MD Discharge Disposition: Home or Self Care 12/30/2024 Results Follow-Up [facility] [address] [place] [phone] Svetlana Nickerson MD 12/27/2024 Telephone [facility] [address] [address] Gabriela Gallegos Appointment 12/18/2024 12:52 PM CDT - 12/18/2024 11:59 PM CDT Hospital Encounter [facility] [address] [place] [phone] Svetlana Nickerson MD Discharge Disposition: Home or Self Care 12/18/2024 12:52 PM CDT - 12/18/2024 11:59 PM CDT Hospital Encounter [facility] [address] [place] [phone] Svetlana Nickerson MD Discharge Disposition: Home or [...] drink = 0.6 oz pur e alcohol) [place] Depression Scale Answer Date Recorded Last EPDS Total Score Not on file 01/06/2021 The thought of harming myself has occurred to me . Never 01/06/2021 Estimated Date of Delivery Comme nts Yes 04/12/2025 Based on last me nstrual period of 07/06/2024 Sex and Gender Information Value Date Recorded Sex Assigned at Not on file Legal Sex Female 4:47 AM MANOMETER TECHNICIAN Gender Identity Not on file Sexual Orientation Not on file Last Filed Vital Signs Vital Sign Reading Time Taken Comments Blood Pressure 119/71 02/14/2025 3:01 PM MANOMETER TECHNICIAN Pulse 106 02/14/2025 3:01 PM MANOMETER TECHNICIAN Temperature 36.8 C (98.2 F) 11/27/2020 8:20 [...] SONOGRAM - COMPLETE Routine 03/17/2025 11:49 AM MANOMETER TECHNICIAN Previous section complicating (HCC) Hx of obstetrical complication: Uterine rupture during ALPHONSO, 2021 Seventh (HCC) Obesity affecting , antepartum, unspecified obesity type (HCC) Encounter for follow-up ultrasound of anatomy ([facility]) Encounter for ultrasound to assess growth ([facility]) Previous child born with ventricular septal defect, currently , single or unspecified fetus (HCC) SONOGRAM - COMPLETE Routine 02/14/2025 1:51 PM MANOMETER TECHNICIAN Previous section complicating (HCC) Hx of obstetrical [...] HPV DNA PROBE Routine 03/13/2019 4:37 PM MANOMETER TECHNICIAN Encounter for supervision of normal in multigravida in first trimester 7 weeks gestation of HEPATITIS SCREEN ACUTE Routine 06/30/2017 4:33 PM CDT HSV (herpes simplex virus) anogenital infection STD exposure from Last 3 Months or Most Recently Relevant to Health Maintenance Results * Sonogram - Complete (03/17/2025 11:49 AM MANOMETER TECHNICIAN) Only the most recent of4 resultswithin the time period is included. Linked Results Indication ======== Obesity complicating , Class 3 - BMI of 40.0 or greater History of uterine rupture (avulsion) Family history of congenital heart defect History ====== OB History 7. Para 6 [id number] 1. live 2012. Gest. age 41 w [...] Z36.89: Encounter for other specified screening Procedures 61005: US Preg Uterus Follow Up enGeneS Anatomical Region Laterality Modality Other 03/17/2025 11:4 9 AM MANOMETER TECHNICIAN Jamaal Oakes MD [facility] ORDERABLES Edited Result - Final * [...] 12/30/2024 Exam Date/Time: 12/30/2024 12:49 PM Site: [facility] Current Location: CARE EStaffOrdering Provider: Svetlana Nickerson Castings Trimmer: Irish Galloway [facility] Study Info Procedure: ECHO COMPLETE CG Indications: [...] 12/30/2024 Exam Date/Time: 12/30/2024 12:49 PM Site: [facility] Current Location: CARE EStaffOrdering Provider: Svetlana Nickerson Castings Trimmer: Irish Galloway [facility] Study Info Procedure: ECHO COMPLETE CG Indications: [...] on 12/30/2024 01:37 PM Svetlana Nickerson MD ECHO [facility] Final Result * HIV-1 HIV-2 ANTIBODY + HIV P24 AG PANEL (11/25/2020 6:30 AM CDT) HIV1/2 Ab + P24 Ag Non Reactive Non Reactive 11/25/2020 9:34 AM CDT [facility] Blood BLOOD SPECIMEN / Unknown Venipuncture / Unknown 11/25/2020 6:30 AM CDT 11/25/2020 6:47 AM CDT Narrative [facility] - 11/25/2020 9:34 AM CDT No Laboratory evidence of HIV infection. Lissette Mike DO LAB - CHEMISTRY ORDERABLES Final Result [facility] [address] [place] [address] * STREP B DEE (11/03/2020 5:11 PM CDT) Strep B DEE Negative Negative [facility] ACCOUNT BILL Comment: Centers for Disease Control and Prevention (CDC) and [place] Congress of Obstetricians and Gynecologists (ACOG) guidelines [...] Resulting Agency Comment Lab Testing performed at: [facility] [address] [facility] [phone] [place] Lissette Mike DO LAB - MICROBIOLOGY ORDERABLES Fi nal Result [facility] ACCOUNT BILL [address] [place] [address] * GLUCOSE CHALLENGE (10/06/2020 12:24 PM CDT) GTT 1Hr 114 <135 mg/dL [facility] Comment: Test Performed at: [facility] [address] [place] [address] ELIZA CASTAÑEDA DO,MPH Blood BLOOD SPECIMEN / Unknown 10/06/2020 12:24 PM CDT 10/06/2020 12:28 PM CDT us Lissette Mike DO LAB - CHEMISTRY ORDERABLES Final Result [facility] [address] [place] [address] * HPV DNA PROBE (03/13/2019 4:37 PM MANOMETER TECHNICIAN) Human papillomavirus Aptima Negative Negative [facility] ACCOUNT BILL Comment: This nucleic acid amplification test detects fourteen high-risk HPV types (16,18,31,33,35,39,45,51,52,56,58,59,66,68) without differentiation. 03/13/2019 4:37 PM MANOMETER TECHNICIAN 03/13/2019 Narrative [facility] ACCOUNT BILL - 03/22/2019 8:09 AM MANOMETER TECHNICIAN No. of containers..01 ThinPrep Vial Resulting Agency Comment Lab Testing performed at: [facility] [phone] [place] Lissette Mike DO LAB - SEROLOGY ORDERABLES Final Result Performing Organization Address [facility] de Phone Number [facility] ACCOUNT BILL [address] [place] [address] * HEPATITIS SCREEN ACUTE (06/30/2017 4:33 PM [...] with a HCV Nucleic Acid Amplification test ([id number]). Blood BLOOD SPECIMEN / Unknown 06/30/2017 4:33 PM CDT 06/30/2017 Narrative Resulting Agency Comment [facility] [address] [facility] [phone] us Lissette Mike DO LAB - CHEMISTRY ORDERABLES Final Result Performing Organization Address [facility] Co de Phone Number [facility] ACCOUNT BILL [address] [place] [address] from Last 3 Months or Most Recently Relevant to Health Maintenance Insurance [facility] Advance Directives * Full Code (Latest [...] 7:17 PM 08/22/2019 11:31 PM Care Teams Advertisement Distributor Relationship Specialty Start Date End Date Eliud Cxo DO [address] [place] [address] PCP - General 06/05/09
--- OUTSIDE RECORDS SUMMARY | 2025-03-18 02:52 | XMS_ITS | Clinical Summary ---
Author Organization [facility] Address [address] [place] [id number] Care Team Providers Care Sales Order Clerk Name Role Phone No, Physician Primary Care Provider [phone] Mani Newsome MD Unavailable [phone] Allergies No known active allergies Medications vit 56-xomi-awcok-d calvert 27mg iron- 800 mcg-250 mg capsule [...] Additional Information Patient not taking.Reported on 03/31/2023 DinnerTime Ultra Test strip USE TO TEST BLOOD [...] risk. Supervision of high risk in third [facility] 09/13/2022 Overview (12/28/2022): [x] Co-management [x] Blue Team - Pt will be seeing primary only as of 12/28 per Kevin, no longer seeing MFM unless something changes Referring Provider: Laurence East [phone] [] or Medicare Insurance [x] Dating Criteria: [...] [] MOC: [] Method of feeding: [] Cellophane Worker: [] PP Depression Discussed: Discussed with primary [...] with vertical extension. Baby to NICU at [facility] Will need CS at 36-37 weeks gestation given vertical extension - scheduled March 24 S/p MFM referral, normal placentation Completed BMZ course in anticipation of 36wk delivery Uterine rupture during labor 09/09/2022 Overview (12/26/2022): - Last attempted TOLAC, resulted in emergent CS due to uterine rupture with vertical extension (records in [facility]). Baby to NICU at [facility]. - Will need scheduled CS at [...] Date Smoking Tobacco: Never Smokeless Tobacco: Never Lincoln Depression Scale Answer Date Recorded Lincoln Depression Scale Total 7 05/05/2023 The thought [...] on file Legal Sex Female 10:36 PM BRIDAL STYLIST SALES CONSULTANT Gender Identity Female 06/02/2021 8:22 PM BRIDAL STYLIST SALES CONSULTANT Sexual Orientation Not on file Obstetrics History [...] WILLIA M JN Gao MD Complications:None Delivery Location:[facility] 2015 Term 39w 1d 0h 04m 0h 04m 3.68 kg (8 lb 1.8 oz) F Vag-S pont Epidur al Livin g 8 9 GWENDO AMARILYS Complications:None Delivery Location:[facility] 2019 Term 39w 0d 0h 02m 0h 02m 3.59 kg (7 lb 14.6 oz) M CS-LT ranv Combin ed Spinal /Epidu ral,Sp inal,E pidura l N Livin g 9 9 TYRONE, BABY BOY FERRAR Lali doan MD Complications: Intolera nce, heart rate deceleration, delivered, current hospitalization Delivery Location:[facility] ([facility]) 2020 Term 39w 3d 0h 01m 0h 01m 3.38 kg (7 lb 7.2 oz) M CS-LT ranv Spinal N Livin g 8 9 TYRONE, BABY MARCOS Vega Cee DO Complications:None Delivery Location:[facility] ([facility]) 2021 Term 39w 3d [...] Spinal Livin g 6 6 Brian L [place] -Tyrone Alicia Newsome am, MD Delivery Location:[facility] Main C ampus (MHE L AND D PROCEDURE) Last Filed Vital Signs Vital Sign Reading Time Taken Comments Blood Pressure 122/76 11/29/2023 3:28 PM CDT Pulse 101 03/27/2023 8:00 AM BRIDAL STYLIST SALES CONSULTANT Temperature 37.3 C (99.2 F) 03/27/2023 8:00 AM BRIDAL STYLIST SALES CONSULTANT Respiratory Rate 20 03/27/2023 5:53 AM BRIDAL STYLIST SALES CONSULTANT Oxygen Saturation 98% 03/27/2023 5:53 AM BRIDAL STYLIST SALES CONSULTANT Inhaled Oxygen Concentration - - Weight 105.7 [...] REFLEX TO GENOTYPING Routine 05/30/2022 10:58 AM BRIDAL STYLIST SALES CONSULTANT Well woman exam from Last 3 Months [...] - GENERAL ORDERABLES Final Result [facility] [address] [facility] [place] [address] * Pap and High Risk HPV, reflex to Genotyping (05/30/2022 10:58 AM BRIDAL STYLIST SALES CONSULTANT) Thin prep (Pap test) 05/30/2022 10:58 AM BRIDAL STYLIST SALES CONSULTANT 05/31/2022 10:58 AM BRIDAL STYLIST SALES CONSULTANT Narrative PATHOLOGY [facility] - 06/03/2022 11:52 AM BRIDAL STYLIST SALES CONSULTANT [facility] Department of Pathology [address] [place] [address] Final Report with Addendum Note to Patients: [...] the details. Patient Name: MELL HANSEN Address: [address] [place] [address] Gender: F : 1990 (Age: 31) Service: Location: [facility] : [id number] [facility] #: [id number] Patient Type: [facility] SPECIMEN Taken: 05/30/2022 Received: 05/31/2022 Accessioned:: 06/01/2022 Reported: 06/03/2022 Physician(s): Cydney Colbert M.D. [facility] Diagnosis: Source of Specimen: SCREENING THIN PREP [...] 68. Test performed utilizing Gen-Probe Aptima assay. SHILO Banks(ASCP)Report Electronically Reviewed and Signed Out By [...] determined by the Surgical Pathology Department at [facility] as part of an ongoing quality engineer medical device program and in compliance with federally mandated [...] characteristics determined by the Surgical Pathology Department [facility]. It has not been cleared or approved by the U. S. Food and Drug Administration. Cydney Colbert MD LAB CYTOLOGY ORDERABLES Fin al Result [facility] from Last 3 Months or Most Recently Relevant to Health Maintenance Insurance [employer] [facility] [employer] [facility] [employer] [facility] Advance Directives For more information, please contact: [phone] * Full Code (Latest Code Status on [...] n case of cardiopulmonary arrest Care Teams Sales Order Clerk Relationship Specialty Start Date End Date No, Physician PCP - General 05/25/21 Mani Newsome MD Consulting Physician Obstetrics and Gynecology 03/27/23
[2025-03-18] MEDS: ACETAMINOPHEN 500 MG TABLET 1000 MG PO ×4 (05:47→23:50)
[2025-03-18] MEDS: LACTATED RINGERS 1,000 ML 125 ML IV CONT ×2 (05:49→06:53)
--- NOTE | 2025-03-18 07:15 | P.PNAN_ITS ---
Anes - Initial Pre Proc Eval Procedure: Operation Date: 03/18/25 07:30 Proposed Procedures p Repeat Section, Bilateral Salpingectomy - Jamaal Oakes MD Date/Time: 03/18/25 07:15 Surgeon: Bryan Juares MD Pre Op Diagnosis: C/S Patient Data Age: 34 Gender: F Height: 1.6 m Weight: 113 kg Last Vital Signs Temp 36.7 C 03/18/25 05:39 Pulse 87 03/18/25 07:00 BP 134/77 03/18/25 07:00 Allergies Allergy/AdvReac Type Severity Reaction Status Date / Time No Known Allergies Allergy Verified 03/18/25 05:59 Home Medications ?Medication ?Instructions ?Recorded ?Confirmed ?Type vits no.126-ferrous fum tablet PO 08/22/24 History 28 mg iron-folic acid 800 mcg tablet (Classic ) bupropion HCl 300 mg 24 hr tablet, 300 mg PO DAILY #90 tabs 02/18/25 03/17/25 Rx extended release escitalopram oxalate 20 mg tablet 20 mg PO DAILY #90 t abs 02/18/25 03/17/25 Rx Patient hx anesthesia problems: none Family hx anesthesia problems: none Results Review: All pre-operative results and documents have been reviewed as part of the pre- operative evaluation. [facility] Past Medical History Medical History Anxiety Bipolar 1 disorder Surgical History Surgical History History of delivery x 4 Family History Family History Mother Skin cancer Depression Diabetes mellitus Hypertension Grandparent Malignant neoplasm of prostate Depression Hypertension Social History Social History Smoking status: Never smoker Alcohol intake: former Alcohol use details: occasional Substance use: never Substance use type: does not use Lack of Transportation: No Lack of Food: Never True Current Housing: I Have Housing Concerned About Future Housing: No Difficulty Paying Gas/Electric Bills: No Difficulty Paying for Meds: No Currently Unemployed: No Education: Trade/Vocational Certificate Difficulty w/ Childcare or Family Care: No Living arrangements: with family Occupation/Education: unemployed Gender identity (if verbalized by the patient): Female Sexual Orientation (if Verbalized by the Patient): Straight or Heterosexual Spiritual care concerns: No Anes - Eval Final PreProcedure Day of Procedure 03/18/25 07:15 Patient weight: morbidly obese Heart: regular rate and rhythm Lungs: clear to auscultation Airway: Mallampati scale class II Neurological: alert and oriented Last oral intake: >/= 8 hours ASA classification: III Emergent: no Anesthetic plan: proceed Anesthesia type and monitoring: regional spinal and standard monitoring Results Review: All pre-operative results and documents have been reviewed as part of the pre- operative evaluation. Informed Consent: The patient's anesthetic plan and its attendant risks and benefits were discussed with the patient/family/POA. Questions were solicited and answers provided to the satisfaction of the patient/family/POA.
--- NOTE | 2025-03-18 07:17 | PM.IMHP2 ---
H&P: HPI History of Present Illness Date/Time: 03/18/25 07:17 Chief Complaint: Intrauterine at term prior section obesity Narrative: 34 yo who presents at 39w for repeat . complicated by 4 prior c-sections. Review of Systems Cardiovascular: Cardiovascular: Denies chest pain, Denies leg edema, Denies palpitations, Denies dyspnea and Denies dyspnea on exertion Respiratory: Respiratory: Denies cough, Denies dyspnea and Denies dyspnea on exertion Gastrointestinal: Gastrointestinal: Denies abdominal pain, Denies constipation, Denies diarrhea, Denies nausea and Denies vomiting Genitourinary: Genitourinary: Denies hematuria, Denies urinary frequency, Denies dysuria, Denies pelvic pain, Denies urinary incontinence and Denies vaginal discharge Neurologic: Reports system reviewed and no additional complaints, except as documented Psychiatric: Psychiatric: Reports no additional psychiatric complaints Endocrine: Endocrine: Denies palpitations PMFSH Past Medical History Medical History Anxiety Bipolar 1 disorder Surgical History Surgical History History of delivery x 4 Family History Family History Mother Skin cancer Depression Diabetes mellitus Hypertension Grandparent Malignant neoplasm of prostate Depression Hypertension Social History Social History Smoking status: Never smoker Alcohol intake: former Alcohol use details: occasional Substance use: never Substance use type: does not use Lack of Transportation: No Lack of Food: Never True Current Housing: I Have Housing Concerned About Future Housing: No Difficulty Paying Gas/Electric Bills: No Difficulty Paying for Meds: No Currently Unemployed: No Education: Trade/Vocational Certificate Difficulty w/ Childcare or Family Care: No Living arrangements: with family Occupation/Education: unemployed Gender identity (if verbalized by the patient): Female Sexual Orientation (if Verbalized by the Patient): Straight or Heterosexual Spiritual care concerns: No Meds Home Medications and Allergies Home Medications ?Medication ?Instructions ?Recorded ?Confirmed ?Type vits no.126-ferrous fum tablet PO 08/22/24 03/12/25 History 28 mg iron-folic acid 800 mcg tablet (Classic ) bupropion HCl 300 mg 24 hr tablet, 300 mg PO DAILY #90 tabs 02/18/25 03/17/25 Rx extended release escitalopram oxalate 20 mg tablet 20 mg PO DAILY #90 tabs 02/18/25 03/17/25 Rx Allergies Allergy/AdvReac Type Severity Reaction Status Date / Time No Known Allergies Allergy Verified 03/18/25 05:59 Vital Signs Vital Signs - 24 hr 03/18/25 05:39 03/18/25 05:45 03/18/25 06:00 Temperature 98.1 F Pulse Rate 108 H 99 96 Blood Pressure 116/69 118/77 125/86 03/18/25 06:15 03/18/25 06:30 03/18/25 07:00 Temperature Pulse Rate 89 91 87 Blood Pressure 129/82 118/67 134/77 03/18/25 07:16 Temperature Pulse Rate 100 Blood Pressure 131/86 Exam Const: General: no acute distress Eyes: EOM: EOMs intact bilaterally Neck: Neck: supple Thyroid: thyroid normal Chest: Breast/axilla inspection: normal inspection of the breasts Breast/axilla palpation: normal palpation of the breasts, normal palpation of the axillae and no axillary lymphadenopathy Resp: Effort & Inspection: normal respiratory effort Auscultation: clear to auscultation bilaterally Cardio: Rate: regular rate Rhythm: regular rhythm GI: Inspection: non-distended and other (Gravid) GI Palp: Yes Soft to palpation, No Tenderness to palpation present (GI) and No Guarding due to palpation present (GI) Auscultation: normal bowel sounds : Speculum Exam - Vagina: No vaginal bleeding OB/external & speculum: external exam normal; No vaginal bleeding Skin: General skin exam: normal color and no rashes or lesions noted Neuro: Cognition (Neuro): normal cognition Speech: normal speech Extrem: General: normal to inspection Psych: Mental Status: mental status grossly normal Affect: normal affect Assessment and Plan Assessment and plan (1) : Code(s): Z34.90 - Encounter for supervision of normal , unspecified, unspecified trimester Status: Acute Assessment and Plan: 34 yo who presents at 39w for repeat admit to L&D routine admission orders labs reviewed Rh+ GBS neg (2) History of delivery: Code(s): Z98.891 - History of uterine scar from previous surgery Status: Acute Assessment and Plan: prior x 4 (3) Bipolar 1 disorder: Code(s): F31.9 - Bipolar disorder, unspecified Status: Acute (4) Anxiety: Code(s): F41.9 - Anxiety disorder, unspecified Status: Acute (5) Obesity: Code(s): E66.9 - Obesity, unspecified Status: Acute
--- NOTE | 2025-03-18 07:20 | WPDHPUPDATE1 ---
History and Physical Update Update Date/Time: 03/18/25 07:20 History and Physical has been reviewed, including an updated exam of the patient. There are NO changes in the patient's condition. Risks, benefits, and alternatives have been discussed and questions answered. Patient agrees to proceed with procedure.
[2025-03-18] MEDS: FAMOTIDINE 20 MG/2 ML VIAL IV PUSH (07:26)
[2025-03-18] MEDS: ONDANSETRON INJ 4 MG/2 ML VIAL IV PUSH (07:26)
[2025-03-18] MEDS: ceFAZolin 2 GM in SODIUM CHLORIDE 0.9% IV 50 ML 100 ML IVPB (07:29)
--- NOTE | 2025-03-18 08:44 | P.PCNOB_ITS ---
OB - Delivery Note Procedure Delivery date: 03/18/25 Pre-op diagnosis: Previous Delivery Post-op Diagnosis: Same Induction method: None Delivery monitor: External FHT Prior to decision for section, ACOG/SMFM labor guidelines were considered and discussed with the patient and staff. Decision made to proceed with the section.: Yes Procedure Performed: Repeat Secondary branch: low cervical, transverse Surgeon: Jamaal Oakes MD Anesthesia type: Spinal Description of Procedure/Findings: The patient was taken to the operating room. A combined spinal epidural anesthesic was administered and found to be adequate at a t-10 level. The patient was placed in a supine position with a slight left lateral tilt. A rothman catheter was placed with return of clear urine. A Bovie grounding pad was placed. Surgical prep was performed and surgical drapes were placed. A surgical time out was performed. A Pfannenstiel skin incision was then made with the scalpel and carried through to the underlying layer of fascia. The fascia was then incised in the midline and the incision was extended laterally with the Guillory scissors. The superior aspect of the fascia was then grasped with the Jenise clamps, elevated, and the und erlying rectus muscles dissected off bluntly and sharply. The rectus muscles were adherent to the overlying fascia. Attention was then turned to the inferior aspect of this incision which, in a similar fashion, was grasped, tented up with the Jenise clamps, and the rectus muscles dissected off both bluntly and sharply. The rectus muscles and peritoneum were intimately adherent to each other. The midline was identified and entered sharply. There were several omental adhesions to the overlying peritoneum that were taken down with Bovie cautery. A ring retractor was placed in the abdominal cavity for better visualization. The uterus was inspected for rotation. The lower uterine segment was noted to be thin. A low-transverse uterine incision was made sharply with the scalpel and entry was made into the uterine cavity. An amniotomy was made and copious amounts of clear fluid were noted on return. The uterine incision was extended laterally bluntly. The bladder blade was removed and the fetus was delivered atraumatically. The nose and mouth were suctioned with a bulb syringe. The umbilical cord was clamped twice and cut. The infant was handed off to the waiting staff. At the time of the delivery, the had good color, tone and grimace. The infant cried with minimal stimulation. A second segment of umbilical cord was clamped and cut for cord blood gasses. Cord blood was collected for determination of the blood type and for direct Rodríguez. The placenta was delivered spontaneously without difficulty. The placenta appeared grossly normal and complete. The uterus was exteriorized and cleared of all clots and debris. The uterine incision was repaired using 0-monocryl suture in a running fashion. The posterior aspect of the uterus and the broad ligaments were inspected and the posterior cul-de-sac cleared of fluid and blood clots. The uterine closure was again inspected and found to be hemostatic. The uterus was returned to the abdominal cavity. The pericolic gutters were inspected and were cleared of all blood clots and debris. The uterine closure was then re inspected to ensure hemostasis as were all subfascial tissues. The peritoneum and rectus muscles were reapproximated in a mass closure fashion using 0 Vicryl.. The fascia was reapproximated with 0 looped PDS in a running fashion. The subcutaneous tissue was irrigated and hemostasis achieved with electrocautery. It was reapproximated with 3-0 vicryl in a Interrupted fashion. The skin was closed with sekou. A sterile IMAN vacuum dressing was applied to the wound. The patient tolerated the procedure well. Sponge, lap and needle counts were correct times three. The patient was taken to recovery in stable condition and without anticipated complications. Estimated Blood Loss: 760 Drains: No Packing: No Pathology: None sent Complications: No immediate complications Condition: Stable Disposition: Floor Baby Date of : 03/18/25 Gestational Age by Date: 39 Infant gender: Female presentation: vertex Placenta delivery description: Manual Removal Cord Vessel Description: 3 Vessels
[2025-03-18] MEDS: OXYTOCIN 30 UNITS/NS 500 ML 30 UNITS/500 ML BAG 125 UNITS IV CONT (09:32)
--- NOTE | 2025-03-18 11:28 | OBPPTRN ---
1115 Patient transferred to post room #282 via stretcher. Support person present. Oriented to unit, room, information board, rooming in, admission packet and security measures. Patient verbalizes understanding. transferred to [facility]
[2025-03-18] MEDS: buPROPion HCL XL (24 HR) 150 MG TABCR 300 MG PO (12:00)
[2025-03-18] MEDS: ESCITALOPRAM OXALATE 10 MG TABLET 20 MG PO (12:00)
[2025-03-18] MEDS: SIMETHICONE 80 MG TAB.CHEW PO ×2 (12:00→17:27)
[2025-03-18] MEDS: KETOROLAC 15 MG/ML VIAL (*BKC) IV PUSH ×3 (12:01→23:50)
--- NOTE | 2025-03-18 14:00 | PC.NURSE ---
Introductions were made, then consulted with patient to assess needs related to . Mother's was transferred to [facility], offered to set her up with a breast pump and mother declined. Per mother she is going to hand express only right now and she does have her own breast pump at home to use, she is planning on being discharged tomorrow. Resources provided for inpatient and outpatient services with the feeding sheet, mom/baby guide and name written on the communication board. Mother voiced understanding of information and will call if there is a request for assistance. Reported to the Primary RN.
--- NOTE | 2025-03-18 14:05 | PC.NURSE ---
1400-Dr. Oakes updated on pt.'s [place] scale of 10. Reviewed prescribed meds.
--- NOTE | 2025-03-18 14:11 | PC.NURSE ---
1410-Pt requests FC to be removed and to get up oob and walk. FC d'c'd, pericare done for pt per this RN. This RN assisted pt up oob with standby assist, pt walking in room with standby assistance of this RN. Pt ambulating well, pt to assisted back into bed. Call light within reach.
--- NOTE | 2025-03-18 16:36 | PC.NURSE ---
1615- Pt tearful, asking if she can stay tomorrow. This RN offered reassurance, encouragement. Pt denies any SI at this time. States that 'it is all just a lot. Infant was transferred to [facility] for higher level of care. Pt instructed to call out if needing anything. Will continue to monitor closely.
[2025-03-18] MEDS: DOCUSATE SODIUM 100 MG CAPSULE PO (17:27)
[2025-03-19 03:38] LABS: Hematocrit 29.5 % (37.0-47.0); Hemoglobin 9.6 g/dL (12.0-15.0); Immature Granulocyte Percent A 0.4 % (0-0.5); Lymphocytes Absolute Auto 1.91 K/mm3 (0.9-3.2); Mean Corpuscular HGB Conc 32.5 g/dl (32-36); Mean Corpuscular Hemoglobin 30.0 pg (26-34); Mean Corpuscular Volume 92.2 fl (80-100); Nucleated Red Blood Cells Absolute Auto 0.000 K/mm3 (0.0-0.012); Nucleated Red Blood Cells Perc 0.0 % (0.0-0.2); Platelet Count Result 196 k/mm3 (150-375); Red Blood Count 3.20 M/mm3 (4.2-5.4); White Blood Count 9.4 K/mm3 (4.5-10.0)
[2025-03-19] MEDS: IBUPROFEN 600 MG TABLET PO ×3 (05:25→19:07)
[2025-03-19] MEDS: ACETAMINOPHEN 500 MG TABLET 1000 MG PO ×3 (05:25→19:07)
[2025-03-19 07:10] VITALS: BP 131/85; PULSE 95; RESP 18; TEMP 36.6; O2SAT 100
[2025-03-19] MEDS: SIMETHICONE 80 MG TAB.CHEW PO ×3 (08:50→17:13)
[2025-03-19] MEDS: DOCUSATE SODIUM 100 MG CAPSULE PO ×2 (08:50→17:13)
[2025-03-19] MEDS: ESCITALOPRAM OXALATE 10 MG TABLET 20 MG PO (08:50)
[2025-03-19] MEDS: MULTIVIT/MIN/PREN/FOL AC/IRON TABLET 1 TAB PO (08:50)
[2025-03-19] MEDS: buPROPion HCL XL (24 HR) 150 MG TABCR 300 MG PO (08:50)
--- NOTE | 2025-03-19 08:56 | PC.NURSE ---
Per Primary RN, Virgie Nixon, mother declined to use a breast pump and wishes to only hand express her breasts at this time.
--- NOTE | 2025-03-19 09:07 | P.PNOB_ITS ---
OB - PN: Subj Subjective Date/time seen: 03/19/25 09:07 Patient comments: no complaints, pain well controlled, tolerating diet and flatus present OB - PN: Obj Data Labs 03/19/25 03:16 Labs: Laboratory Results - last 24 hr 03/19/25 03:16 WBC 9.4 RBC 3.20 L Hgb 9.6 L Hct 29.5 L MCV 92.2 MCH 30.0 MCHC 32.5 RDW 13.4 Plt Count 196 MPV 10.8 H Immature Gran % (Auto) 0.4 Neut % (Auto) 68.2 Lymph % (Auto) 20.4 [place] % (Auto) 9.3 H Eos % (Auto) 1.4 Baso % (Auto) 0.3 Lymph # (Auto) 1.91 [place] # (Auto) 0.9 H Eos # (Auto) 0.1 Baso # (Auto) 0.0 Abs Immat Gran (auto) 0.04 H Absolute Neuts (auto) 6.4 Absolute Nucleated RBC 0.000 Nucleated RBC % 0.0 OB - PN A/P Plan day: 1 Plan: routine care Comments: patient doing well H/H , asymptomatic, continue iron supplementation afebrile, VSS incision C/D/I rothman removed, voiding spontaneously infant transferred to [facility] for respiratory support. Pt may have visiting pass today continue routine post op care Time Spent With Patient Time: Total time spent is greater than 50% in coordination of care (as documented) at patient's floor/unit and/or counseling patient: Time with patient: less than 15 minutes Review of Systems 2 Constitutional: Constitutional: Reports no additional constitutional complaints Cardiovascular: Cardiovascular: Reports no additional cardiovascular complaints Respiratory: Respiratory: Reports no additional respiratory complaints Gastrointestinal: Gastrointestinal: Reports no additional gastrointestinal complaints Genitourinary: Genitourinary: Reports no additional female genitourinary complaints Exam 2 Const: General: comfortable and no acute distress Resp: Effort & Inspection: normal respiratory effort Auscultation: clear to auscultation bilaterally Cardio: Rate: regular rate GI: GI Palp: Yes Soft to palpation, Yes Tenderness to palpation present (GI) (around incision ) and No Guarding due to palpation present (GI) A uscultation: normal bowel sounds Other: incision C/D/I, covered with Dermabond Psych: Appearance: grossly normal Mental Status: mental status grossly normal Affect: normal affect
--- NOTE | 2025-03-19 10:15 | PC.NURSE ---
This patient left on a therapeutic leave pass to visit in NICU at [facility] at 1015.
--- NOTE | 2025-03-19 13:00 | PC.NURSE ---
Patient returned from therapeutic leave pass at 1300.
[2025-03-19] MEDS: oxyCODONE HCL (*CRX) 5 MG TAB IR PO ×2 (13:05→17:15)
--- NOTE | 2025-03-19 15:23 | PCCCNOTE ---
Spoke with RN this morning who reports baby was transferred yesterday to [facility]. Pt. has been approved for a day pass to go visit baby. Pt. has currently been on her day pass since this morning with no set time for pt. to return. Per RN OB has not specified what time she will need to be back to her room tonight to continue acute care treatment. Plan is for pt. to discharge tomorrow home. Call to pt.'s cell phone [phone] and left message stating that if pt. were in need of any further resources or services that were not already at her bedside located in her admission OB folder to please contact CC back for assistance. Pt. was informed that resources as well as post information is in her folder for use if needed. Pt. has WIC information also at her bedside to use if needed. Pt. lives at home per RN with FOB and other children. This is pt.'s 7th child. No substance abuse concerns. No other concerns at this time. 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 Has been on medication for these feelings with no new acute issues. Pt. was also informed that she will have close follow up with OB and Pediatrics as well.
[2025-03-19 19:10] VITALS: BP 128/85; PULSE 95; RESP 16; TEMP 36.8; O2SAT 100
[2025-03-20] MEDS: IBUPROFEN 600 MG TABLET PO ×2 (01:07→07:56)
[2025-03-20] MEDS: ACETAMINOPHEN 500 MG TABLET 1000 MG PO ×2 (01:07→07:56)
--- NOTE | 2025-03-20 06:09 | WPDANLDPN2 ---
Anes-Prog Note L&D Date/Time: 03/20/25 06:09 Comfortable throughout: section Neuraxial method: spinal Epidural/Spinal procedure site: clean & non-tender Neuro status: Neuro function grossly intact. Cardiovascular status: normal Respiratory status: normal Airway patency: baseline Mental status: baseline Post-Op hydration status: normal Vital Signs: Last Vital Signs Temp 36.8 C 03/19/25 19:10 Pulse 95 03/19/25 19:10 Resp 16 03/19/25 19:10 BP 128/85 03/19/25 19:10 Pulse Ox 100 03/19/25 19:10 O2 Del Method Room Air 03/19/25 07:50 Pain score (VAS): 04/05 I/O: Intake & Output 03/19/25 03/19/25 03/20/25 15:59 23:59 07:59 Intake Total 0 250 Balance 0 250 Post-procedural complaints: none Patient feedback: Patient satisfied with anesthetic care.
--- NOTE | 2025-03-20 06:09 | WPDANLDNPN2 ---
Anes-Prog Note L&D-Neuraxial Date/Time: 03/20/25 06:09 Neuraxial medications: intrathecal PF morphine Opiod-related complaints: none Patient feedback: Patient satisfied with post-operative pain management.
[2025-03-20 07:40] VITALS: BP 141/86; PULSE 95; RESP 18; TEMP 37.1; O2SAT 100
[2025-03-20] MEDS: SIMETHICONE 80 MG TAB.CHEW PO (07:56)
--- NOTE | 2025-03-20 09:26 | P.DS_ITS ---
DS: Admitting Diagnosis Discharge Date 03/20/25 Admitting Diagnosis intrauterine at term prior DS: Discharge Diagnosis Discharge Diagnosis (1) delivery delivered: Code(s): O82 - Encounter for delivery without indication Status: Acute OB - DS: Summary OB Procedures : None OB Procedures Intrapartum: OB Procedures: : None Peripartum Data Infant Delivery Method: Section Procedures: Procedures Operation Date: 03/18/25 07:30 Actual Procedure Side Surgeon p Repeat Section Bilateral Jamaal Oakes MD complications: none Status at Discharge Functional status at discharge: independent ambulation Overall status at discharge: patient is progressing back to baseline Time Spent with Patient Time attestation: Total time spent providing and/or coordinating discharge services: Time spent: Less than 30 minutes Exam Const: General: comfortable and no acute distress Resp: Effort & Inspection: normal respiratory effort Auscultation: clear to auscultation bilaterally Cardio: Rate: regular rate GI: Inspection: non-distended GI Palp: Yes Soft to palpation, No Firmness to palpation present (GI), Yes Tenderness to palpation present (GI) (mild tenderness over incision ) and No Guarding due to palpation present (GI) Auscultation: normal bowel sounds Psych: Appearance: grossly normal Mental Status: mental status grossly normal Discharge Plan Discharge Discharging Clinician: Jamaal Oakes Patient Disposition: Home Activity: as tolerated and pelvic rest Diet: regular Patient Instructions: Antibiotic Form, Expression, Collection and Storage of Breast Milk (DC) Patient Language: Greek Stand Alone Forms: General Discharge Information Follow-up/Referrals: Jamaal Oakes MD [Physician, [employer] [facility]] - 1 Week Referral Note: staple removal Discharge Medications: New oxycodone-acetaminophen 5-325 mg tablet 1 tablet PO Q6H PRN (Reason: pain) Qty: 28 0RF ibuprofen 600 mg tablet 600 mg PO Q6H PRN (Reason: pain) Qty: 30 0RF polysaccharide iron complex 150 mg iron Capsule 150 mg PO BIDWM Qty: 30 0RF Continued escitalopram oxalate 20 mg tablet 20 mg PO DAILY Qty: 90 3RF bupropion HCl 300 mg tablet extended release 24 hr 300 mg PO DAILY Qty: 90 3RF Classic 28 mg iron- 800 mcg tablet PO Date of admission: 03/18/25 05:22 Primary Care Provider: PHYSICIAN,FARM EQUIPMENT ASSEMBLER Admitting Provider: Bryan Juares Attending physician on admission: Bryan Juares Condition: Stable
[2025-03-20] MEDS: DOCUSATE SODIUM 100 MG CAPSULE PO (10:17)
[2025-03-20] MEDS: MULTIVIT/MIN/PREN/FOL AC/IRON TABLET 1 TAB PO (10:17)
[2025-03-20] MEDS: buPROPion HCL XL (24 HR) 150 MG TABCR 300 MG PO (10:17)
[2025-03-20] MEDS: ESCITALOPRAM OXALATE 10 MG TABLET 20 MG PO (10:17)
[2025-03-20] MEDS: TETANUS,DIPHTHERIA,AC PERTUSSIS ADULT (0.5 ML) BOOSTRIX IM (10:18)
[2025-03-20] MEDS: INFLUENZA VACCINE 45 MCG/0.5 ML SYRINGE IM (10:18)
[2025-03-22 11:15] VITALS: BP 130/75; PULSE 99; RESP 18; TEMP 36.8; O2SAT 98
--- NOTE | 2025-03-22 11:36 | PC.NURSE ---
pt is on lexapro and wellbutrin, states she feels over all she is doing well, encouraged to call her Physician if she feels a need to change medications or dosages, states she feels comfortable with what she is doing now and will call if needed
== END 2025-03-20 10:53 | disposition home or self-care (01) | DRG 540 ==
LOC: ANHOB2 03-19 08:55 → ANHLDR 03-24 11:57
PROVIDERS: Admitting Provider Student in an Organized Health Care Education/Training Program; Visit Provider Student in an Organized Health Care Education/Training Program
PROC: 10D00Z1 Extraction of Products of Conception, Low, Open Approach (ICD-10-PCS; CPT 59514; principal; 2025-03-18 07:30)
DX: O34.211 Maternal care for low transverse scar from previous cesarean delivery (principal); Z37.0 Single live birth; Z3A.36 36 weeks gestation of pregnancy; O99.344 Other mental disorders complicating childbirth; F31.9 Bipolar disorder, unspecified; F41.9 Anxiety disorder, unspecified; O99.214 Obesity complicating childbirth; E66.9 Obesity, unspecified; Z23 Encounter for immunization
CPT/HCPCS: 36415; 85025; 90471; 90656; 90715; J0690; A9270; G0008; J1885; J2274; J2405; J2590; J7120